=== PATIENT | female | born 1995 | race Two or more races ===

== ENCOUNTER → 2022-10-02 13:15 | Outpatient (BNVA) | payer OTHER, SELFPAY | PROVIDERS: PCP Internal Medicine; Visit Provider Physician Assistant Surgical ==

== ENCOUNTER 2022-10-17 02:50 | Emergency (ER) | payer OTHER, SELFPAY ==
--- NOTE | ~2022-10-17 | CT_ITS ---
EXAMINATION: CT HEAD WITHOUT CONTRAST CLINICAL INFORMATION: Head injury COMPARISON: None. TECHNIQUE: Contiguous axial imaging was performed from the skull base to vertex without intravenous contrast. This CT examination was performed using dose optimization techniques as appropriate, variously including the following: * Automated exposure control * Adjustment of mA and/or kV according to patient size (this includes techniques or standardized protocols for targeted exams where dose is matched to indication/reason for exam; i.e. extremities or head) Use of iterative reconstruction technique DLP: 805 mGy-cm. FINDINGS: There is no evidence of acute intracranial hemorrhage or territorial infarction. No abnormal mass effect or midline shift is seen. [place] to white matter differentiation is well preserved. No extra-axial fluid collections are identified. No hydrocephalus. No significant volume loss. There is no abnormal attenuation within the brain parenchyma. The osseous structures and soft tissues are normal. The mastoid air cells are well aerated. Diffuse opacification throughout the paranasal sinuses. CT/CT head/brain wo IV con IMPRESSION: No acute intracranial pathology. Diffuse paranasal sinus opacification.
[2022-10-17 02:53] VITALS: BP 157/84; PULSE 74; RESP 18; TEMP 37; O2SAT 96; BMI 28.0
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
--- NOTE | 2022-10-17 03:30 | MHC.EDTECH ---
Blood work not to be done at this time per CANYD Garza and Dr Sanders.
--- NOTE | 2022-10-17 03:34 | MHC.EDTECH ---
Labs have been cancelled at this time. pt awaiting CT sacn.
[2022-10-17 03:40] LABS: UPreg QC Valid YES; Urine Pregnancy NEGATIVE (NEGATIVE)
[2022-10-17 04:56] VITALS: BP 105/53; PULSE 75; RESP 18; TEMP 36.4; O2SAT 98
--- NOTE | 2022-10-17 04:58 | PC.NURSE ---
pt ambulatory at discharge. skin pwd. pt provided with discharge packet. pt verbalized understanding of discharge plan
== END 2022-10-17 05:00 | disposition home or self-care (01) ==
PROVIDERS: Emergency Provider Emergency Medicine Emergency Medical Services
DX: S09.90XA Unspecified injury of head, initial encounter (principal); R11.2 Nausea with vomiting, unspecified; R51.9 Headache, unspecified; W01.0XXA Fall on same level from slipping, tripping and stumbling without subsequent striking against object, initial encounter; Y93.9 Activity, unspecified; Y92.9 Unspecified place or not applicable; Y99.9 Unspecified external cause status; Z79.899 Other long term (current) drug therapy
CPT/HCPCS: 70450; 81025; 99284

== ENCOUNTER → 2022-10-19 08:00 | Outpatient (BNVA) | payer OTHER, SELFPAY | PROVIDERS: PCP Internal Medicine; Visit Provider Surgery ==

== ENCOUNTER 2022-11-17 03:55 | Emergency (ER) | payer OTHER, SELFPAY ==
[2022-11-17 03:59] VITALS: BP 119/92; PULSE 112; RESP 20; TEMP 36.4; O2SAT 96; BMI 32.9
[2022-11-17 04:15] LABS: Basophils Absolute Auto 0.1 X10*3/uL (0.0-0.2); Basophils Percent Auto 0.4 % (0-2); Eosinophils Absolute Auto 0.5 X10*3/uL (0.0-0.4); Eosinophils Percent Auto 3.9 % (0-4); Hematocrit 40.5 % (37.0-47.0); Hemoglobin 12.3 g/dl (12.0-16.0); Imm Gran Abs Auto 0.05 X10*3/uL (0.00-0.03); Imm Gran Pct Auto 0.4 % (0.0-0.4); Lymphocytes Absolute Auto 5.3 X10*3/uL (1.2-4.9); Lymphocytes Percent Auto 40.6 % (20-40); MANUAL DIFF FLAG SCAN; Mean Corpuscular HGB Conc 30.4 g/dl (31.0-35.0); Mean Corpuscular Hemoglobin 22.8 pg (27.0-33.0); Mean Corpuscular Volume 75.1 fL (80.0-98.0); Mean Platelet Volume 10.5 fL (9.4-12.3); Monocytes Absolute Auto 0.7 X10*3/uL (0.1-1.2); Monocytes Percent Auto 5.3 % (2-11); Neutrophils Absolute Auto 6.4 x10*3/uL (2.0-8.3); Neutrophils Percent Auto 49.4 % (45-73); Platelet Count 357 X10*3/uL (160-400); Red Blood Count 5.39 X10*6/uL (4.20-5.50); Red Cell Distribution Width 14.6 % (11.0-16.0); SCAN SMEAR FLAG 1
[2022-11-17] MEDS: ondansetron HCL 4 MG/2 ML VIAL IVPUSH (04:16)
--- NOTE | 2022-11-17 04:19 | PC.NURSE ---
IV established, labs obtained. Pt medicated per AUG.
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
[2022-11-17 04:25] LABS: SLIDE REVIEW VERIFIED
[2022-11-17 04:34] LABS: Alanine Aminotransferase 16 U/L (0-31); Albumin Level 4.4 g/dL (3.5-5.0); Alkaline Phosphatase 73 U/L (39-117); Anion Gap 15 (12-20); Aspartate Amino Transferase 13 U/L (5-31); Bilirubin Direct < 0.2 mg/dL (0.0-0.5); Bilirubin Total 0.2 mg/dL (0.0-1.0); Blood Urea Nitrogen 11 mg/dL (9-16); Calcium 9.6 mg/dL (8.4-10.2); Carbon Dioxide 24 mmol/L (22-29); Chloride 109 mmol/L (96-108); Creatinine Clr Calc Pharmacy 104.1; Estimated Glomerular Filt Rate > 60; Ethanol 140 mg/dL; Glucose Random 108 mg/dL (60-115); Lipase 25 U/L (8-78); Potassium 4.2 mmol/L (3.3-5.1); Sodium 144 mmol/L (135-145); Total Protein 7.7 g/dL (6.5-8.0)
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
[2022-11-17] MEDS: Magnesium Hydrox/Alum Hydrox 30 ML ORAL.SUSP PO (04:49)
[2022-11-17] MEDS: Lidocaine HCl Viscous 2 % 15 ML SOLUTION 10 ML MUCOUS MEM (04:49)
[2022-11-17] MEDS: 0.9 % Sodium Chloride 1,000 ML 999 ML IV (04:50)
[2022-11-17 06:48] VITALS: BP 134/74; PULSE 91; RESP 16; TEMP 36.6; O2SAT 95
== END 2022-11-17 07:22 | disposition home or self-care (01) ==
PROVIDERS: Emergency Provider Student in an Organized Health Care Education/Training Program
DX: F10.220 Alcohol dependence with intoxication, uncomplicated (principal); Y90.6 Blood alcohol level of 120-199 mg/100 ml; K29.20 Alcoholic gastritis without bleeding; Z79.899 Other long term (current) drug therapy
CPT/HCPCS: 36415; 80048; 80076; 80307; 83690; 85025; 96361; 96374; 99284; J2405

== ENCOUNTER 2022-12-23 23:48 | Emergency (ER) | payer OTHER, SELFPAY ==
[2022-12-23 23:49] VITALS: BP 154/89; PULSE 105; RESP 18; TEMP 36.1; O2SAT 97; BMI 37.2
[2022-12-24 00:27] LABS: MANUAL DIFF FLAG NO
[2022-12-24 00:31] LABS: Basophils Percent Auto 0.3 % (0-2); Eosinophils Absolute Auto 0.4 X10*3/uL (0.0-0.4); Eosinophils Percent Auto 3.2 % (0-4); Hemoglobin 11.8 g/dl (12.0-16.0); Imm Gran Abs Auto 0.05 X10*3/uL (0.00-0.03); Imm Gran Pct Auto 0.4 % (0.0-0.4); Lymphocytes Absolute Auto 3.2 X10*3/uL (1.2-4.9); Mean Corpuscular HGB Conc 31.1 g/dl (31.0-35.0); Mean Corpuscular Volume 74.2 fL (80.0-98.0); Mean Platelet Volume 11.2 fL (9.4-12.3); Monocytes Percent Auto 7.9 % (2-11); Neutrophils Absolute Auto 7.3 x10*3/uL (2.0-8.3); Neutrophils Percent Auto 61.2 % (45-73); Platelet Count 311 X10*3/uL (160-400); Red Blood Count 5.12 X10*6/uL (4.20-5.50); Red Cell Distribution Width 15.7 % (11.0-16.0)
[2022-12-24 00:47] LABS: Alanine Aminotransferase 15 U/L (0-31); Albumin Level 3.9 g/dL (3.5-5.0); Alkaline Phosphatase 66 U/L (39-117); Anion Gap 14 (12-20); Aspartate Amino Transferase 14 U/L (5-31); Bilirubin Direct 0.1 mg/dL (0.0-0.5); Bilirubin Total 0.4 mg/dL (0.0-1.0); Blood Urea Nitrogen 11 mg/dL (9-16); Calcium 9.2 mg/dL (8.4-10.2); Carbon Dioxide 22 mmol/L (22-29); Chloride 110 mmol/L (96-108); Creatinine Clr Calc Pharmacy 131.8; Estimated Glomerular Filt Rate > 60; Glucose Random 109 mg/dL (60-115); Lipase 23 U/L (8-78); Sodium 142 mmol/L (135-145); Total Protein 7.3 g/dL (6.5-8.0)
[2022-12-24 02:00] VITALS: BP 150/82; PULSE 97; RESP 8; O2SAT 97
[2022-12-24 02:27] VITALS: BP 107/56; PULSE 84; RESP 18; TEMP 37; O2SAT 95
--- NOTE | 2022-12-24 02:33 | MHC.EDTECH ---
PATIENT VITALS SIGN TAKEN ,URINE SAMPLE COLLECTED AND SENT TO LAB ,WARM BLANKET GIVEN ,PT RESTING QUIETLY IN BED .
[2022-12-24 02:42] LABS: Appearance Urine Clear; Color Urine Yellow; Glucose Urine UA Negative (Negative); Leukocyte Esterase Urine Moderate (2+) (Negative); Nitrite Urine Negative (Negative); PH 6.5 (5.0-9.0); Specific Gravity - Urine 1.025 (1.005-1.025); UMIC TRIGGER UACC YES; Urine Blood Negative (Negative); Urine Ketones Negative (Negative); Urine Protein Negative (Neg-Trace)
[2022-12-24 02:45] LABS: UPreg QC Valid YES; Urine Pregnancy NEGATIVE (NEGATIVE)
[2022-12-24 02:47] LABS: Bacteria Urine 2+ (None Seen); Hyaline Casts Urine 0-2 /LPF (0-2); UACC Culture Trigger YES
[2022-12-24 03:55] LABS: COVID-19 Test Negative (Negative); IDNOW Serial# 6674DD1D
--- NOTE | 2022-12-24 03:55 | ED.GENADULT ---
HPI - General Adult General Chief complaint: General Medical Stated complaint: uro gen female? general med Time Seen by Provider: 12/24/22 03:08 Source: patient Mode of arrival: ambulatory Limitations: no limitations History of Present Illness HPI narrative: 27-year-old female came in for cough, congestion, and shortness of breath for at least a week, no recent travel, no exposure to a sick contact, patient is known to have genital herpes been having vaginal pain concern of genital herpes flareup, sexually active with 1 partner complaining of frequent urination. Related Data Home Medications Medication Instructions Recorded Confirmed albuterol sulfate 2.5 mg/3 mL mg inhalation Q6H PRN wheezing 03/29/22 10/19/22 (0.083 %) solution for nebulization budesonide-formoterol HFA 80 2 puff inhalation BID 10/02/22 10/19/22 mcg-4.5 mcg/actuation aerosol inhaler (Symbicort) Previous Rx's Medication Instructions Recorded omeprazole 40 mg capsule,delayed 40 mg PO DAILY #14 caps 11/17/22 release albuterol sulfate 90 mcg/actuation 1 inh inhalation QID PRN shortness 12/24/22 aerosol inhaler of breath or wheezing #8.5 grams levofloxacin 750 mg tablet 750 mg PO DAILY #7 tabs 12/24/22 prednisone 20 mg tablet 20 mg PO BID #10 tabs 12/24/22 valacyclovir 1 gram tablet 1,000 mg PO DAILY #5 tabs 12/24/22 (Valtrex) Allergies Allergy/AdvReac Type Severity Reaction Status Date / Time No Known Allergies Allergy Verified 11/17/22 03:59 Review of Systems Review of Systems: All other systems are reviewed and are negative Constitutional: Reports as per HPI and Reports no additional constitutional complaints Eyes: Reports as per HPI and Reports no additional eye complaints Reports system reviewed and no additional complaints, except as documented Cardiovascular: Reports as per HPI and Reports no additional cardiovascular complaints Respiratory: Reports as per HPI and Reports no additional respiratory complaints Gastrointestinal: Reports as per HPI and Reports no additional gastrointestinal complaints Genitourinary: Reports no additional female genitourinary complaints Musculoskeletal: Reports no additional musculoskeletal complaints Skin/Breast: Reports system reviewed and no additional complaints, except as docu Psychiatric: Reports no additional psychiatric complaints Endocrine: Reports no additional endocrine complaints Hematologic/Lymphatic: Reports no additional hematologic/lymphatic complaints Allergic/Immunologic: Reports no additional allergic/immunologic complaints Reports system reviewed and no additional complaints, except as documented and Reports Abnormal speech present [facility] Past Medical History Medical History Asthma Morbid obesity Surgical History History of nasal surgery Family History Family History Mother Hypertension Diabetes Father Hypertension Diabetes Son No problems noted. Social History Social History Alcohol intake: never Patient Tobacco Use Status: Never used Tobacco Smoked in Last 30 Days: No Use of substances other than those prescribed or required for medical reasons: No Advance Directives: No Advance Directives Information Provided: No Patient : No Physical Exam ED Vital Signs: Vital Signs - 24 hr 12/23/22 23:49 12/24/22 02:00 12/24/22 02:27 Temperature 97 F 98.6 F Pulse Rate 105 H 97 84 Respiratory Rate 18 8 L 18 Blood Pressure 154/89 H 150/82 H 107/56 L Pulse Oximetry 97 97 95 Oxygen Delivery Method Room Air Room Air 12/24/22 04:11 Temperature Pulse Rate 94 Respiratory Rate 18 Blood Pressure Pulse Oximetry Oxygen Delivery Method BMI result Body Mass Index 37.2 Vital signs have been reviewed as appeared to be correct. Blood pressure normal. Heart rate normal. Respiration rate normal. Temperature normal. Oxygen saturation normal. Appearance: Alert. Oriented X3. No acute distress. Head: Normal external exam. Normocephalic. Atraumatic. No Pacheco signs noted. No raccoon eyes noted Eyes: PERRLA. EOMI. Conjunctiva and sclera normal. Eyelids normal. ENT: TM's Normal. Pharynx normal. Uvula midline. Moist mucous membranes. No trismus noted. No drooling noted. No muffled voice noted. Neck: Normal inspection. Neck supple. FROM. No adenopathy. Thyroid Normal. No meningeal signs. No neck mass noted. CVS: Normal heart rate and rhythm. Heart sound normal. No murmurs noted. Pulses normal throughout. Respiratory: No respiratory distress. Painless inspiration. Breath sounds normal. Diffuse expiratory wheezing with prolonged expiration.. Chest nontender. No accessory muscle usage noted or decreased air movement noted. Abdomen: Soft and nontender. Bowel sounds normal in all 4 quadrants. No distention noted. No organomegaly noted. No visible injury noted. Pelvic exam: Few vesicular lesion on left labial majora that is tender to touch otherwise unremarkable exam (exam was preformed in the presence of female gse mechanic dietetic technician registered) Back: No CVA tenderness. Full range of motion noted. Skin: Skin warm and dry. Normal skin color. Normal skin turgor. No rashes/lesions/lacerations noted. Extremities: No lower extremity edema. Extremities exhibit normal range of motion. Extremities nontender. Neuro: Oriented X 3. Cranial nerve exam: II-XII are grossly intact No motor deficit. No sensory deficit. Reflexes normal. Course Course Course Narrative: 27-year-old female came in with upper respiratory symptoms, and vaginal pain. Acute bronchitis/asthma exacerbation start the patient on prednisone and bronchodilator. Patient with genital herpes will start the patient on Valtrex. UTI start the patient on levofloxacin. Medications Administered Discontinued Medications Generic Name Dose Route Start Last Admin Trade Name Freq PRN Reason Stop Dose Admin Albuterol Sulfate 5 mg 12/24/22 03:58 12/24/22 04:08 Albuterol Sulfate (0.083%) 2.5 Mg/3 Ml Vial.Neb INHALE 12/24/22 03:59 5 mg ONCE ONE Administration Albuterol/Ipratropium 3 ml 12/24/22 03:58 12/24/22 04:08 Albuterol/Iprat 2.5/0.5mg 3 Ml Ampul.Neb INHALE 12/24/22 03:59 3 ml ONCE ONE Administration Prednisone 60 mg 12/24/22 04:06 12/24/22 04:19 Prednisone 20 Mg Tablet PO 12/24/22 04:07 60 mg ONCE ONE Administration Medical Decision Making Differential Diagnosis Differential Diagnoses: The differential diagnosis associated with the presentation includes (Upper respiratory viral infection, bronchitis, asthma exacerbation, UTI, STDs, herpes genital flare.) Admission/Observation Consideration of admission/observation: Escalation of care including admission/observation considered Lab Data MDM Lab Attestation statement: I reviewed the patient's lab results. 12/24/22 00:14 12/24/22 00:14 Labs: Lab Results 07/09/1312/24/22 12/24/22 Range/Units 00:14 00:14 02:31 WBC 12.0 H (4.8-10.8) X10*3/uL RBC 5.12 (4.20-5.50) X10*6/uL Hgb 11.8 L (12.0-16.0) g/dl Hct 38.0 (37.0-47.0) % MCV 74.2 L (80.0-98.0) fL MCH 23.0 L (27.0-33.0) pg MCHC 31.1 (31.0-35.0) g/dl RDW 15.7 (11.0-16.0) % Plt Count 311 (160-400) X10*3/uL MPV 11.2 (9.4-12.3) fL Immature Gran % (Auto) 0.4 (0.0-0.4) % Neut % (Auto) 61.2 (45-73) % Lymph % (Auto) 27.0 (20-40) % [place] % (Auto) 7.9 (2-11) % Eos % (Auto) 3.2 (0-4) % Baso % (Auto) 0.3 (0-2) % Lymph # (Auto) 3.2 (1.2-4.9) X10*3/uL [place] # (Auto) 1.0 (0.1-1.2) X10*3/uL Eos # (Auto) 0.4 (0.0-0.4) X10*3/uL Baso # (Auto) 0.0 (0.0-0.2) X10*3/uL Abs Immat Gran (auto) 0.05 H (0.00-0.03) X10*3/uL Absolute Neuts (auto) 7.3 (2.0-8.3) x10*3/uL Absolute Nucleated RBC 0.000 (0.0-0.012) X10*3/uL Nucleated RBC % (auto) 0.0 (0.0-0.2) /100WBC Sodium 142 (135-145) mmol/L Potassium 4.0 (3.3-5.1) mmol/L Chloride 110 H (96-108) mmol/L Carbon Dioxide 22 (22-29) mmol/L Anion Gap 14 (12-20) BUN 11 (9-16) mg/dL Creatinine 0.71 (0.5-1.4) mg/dL Estim Creat Clear Calc 131.8 Estimated GFR > 60 Random Glucose 109 (60-115) mg/dL Calcium 9.2 (8.4-10.2) mg/dL Total Bilirubin 0.4 (0.0-1.0) mg/dL Direct Bilirubin 0.1 (0.0-0.5) mg/dL AST 14 (5-31) U/L ALT 15 (0-31) U/L Alkaline Phosphatase 66 (39-117) U/L Total Protein 7.3 (6.5-8.0) g/dL Albumin 3.9 (3.5-5.0) g/dL Lipase 23 (8-78) U/L Urine Color Yellow Urine Appearance Clear Urine pH 6.5 (5.0-9.0) Ur Specific [place] 1.025 (1.005-1.025) Urine Protein Negative (Neg-Trace) mg/dL Urine Glucose (UA) Negative (Negative) mg/dL Urine Ketones Negative (Negative) mg/dL Urine Blood Negative (Negative) Urine Nitrite Negative (Negative) Ur Leukocyte Esterase Moderate (2+) H (Negative) Urine RBC 3-5 H (0-2) /HPF Urine WBC 11-20 H (0-5) /HPF Ur Squamous Epith Cells 11-20 (0-2) /HPF Urine Bacteria 2+ (None Seen) Hyaline Casts 0-2 (0-2) /LPF Urine Test (NEGATIVE) COVID-19 ([place]) (Negative) COVID-19 Clin Com 12/24/22 12/24/22 Range/Units 02:31 03:33 WBC (4.8-10.8) X10*3/uL RBC (4.20-5.50) X10*6/uL Hgb (12.0-16.0) g/dl Hct (37.0-47.0) % MCV (80.0-98.0) fL MCH (27.0-33.0) pg MCHC (31.0-35.0) g/dl RDW (11.0-16.0) % Plt Count (160-400) X10*3/uL MPV (9.4-12.3) fL Immature Gran % (Auto) (0.0-0.4) % Neut % (Auto) (45-73) % Lymph % (Auto) (20-40) % [place] % (Auto) (2-11) % Eos % (Auto) (0-4) % Baso % (Auto) (0-2) % Lymph # (Auto) (1.2-4.9) X10*3/uL [place] # (Auto) (0.1-1.2) X10*3/uL Eos # (Auto) (0.0-0.4) X10*3/uL Baso # (Auto) (0.0-0.2) X10*3/uL Abs Immat Gran (auto) (0.00-0.03) X10*3/uL Absolute Neuts (auto) (2.0-8.3) x10*3/uL Absolute Nucleated RBC (0.0-0.012) X10*3/uL Nucleated RBC % (auto) (0.0-0.2) /100WBC Sodium (135-145) mmol/L Potassium (3.3-5.1) mmol/L Chloride (96-108) mmol/L Carbon Dioxide (22-29) mmol/L Anion Gap (12-20) BUN (9-16) mg/dL Creatinine (0.5-1.4) mg/dL Estim Creat Clear Calc Estimated GFR Random Glucose (60-115) mg/dL Calcium (8.4-10.2) mg/dL Total Bilirubin (0.0-1.0) mg/dL Direct Bilirubin (0.0-0.5) mg/dL AST (5-31) U/L ALT (0-31) U/L Alkaline Phosphatase (39-117) U/L Total Protein (6.5-8.0) g/dL Albumin (3.5-5.0) g/dL Lipase (8-78) U/L Urine Color Urine Appearance Urine pH (5.0-9.0) Ur Specific [place] (1.005-1.025) Urine Protein (Neg-Trace) mg/dL Urine Glucose (UA) (Negative) mg/dL Urine Ketones (Negative) mg/dL Urine Blood (Negative) Urine Nitrite (Negative) Ur Leukocyte Esterase (Negative) Urine RBC (0-2) /HPF Urine WBC (0-5) /HPF Ur Squamous Epith Cells (0-2) /HPF Urine Bacteria (None Seen) Hyaline Casts (0-2) /LPF Urine Test NEGATIVE (NEGATIVE) COVID-19 ([place]) Negative (Negative) COVID-19 Clin Com See Note Independent Interpretation I performed an independent interpretation of an: Plain X-Ray (Chest: No acute intrathoracic pathology.) Radiology Impression Discussion of test interpretation with radiology: I have reviewed the radiologist's reading. Discharge Plan Discharge Clinical Impression: UTI (urinary tract infection), Genital herpes, Bronchitis Patient Disposition: Home, Self-Care Instructions: Sexually Transmitted Diseases (ED), Urinary Tract Infection in Women (DC), Acute Bronchitis (ED) Prescriptions: New valacyclovir [Valtrex] 1 gram tablet 1,000 mg PO DAILY Qty: 5 0RF levofloxacin 750 mg tablet 750 mg PO DAILY Qty: 7 0RF prednisone 20 mg tablet 20 mg PO BID Qty: 10 0RF albuterol sulfate 90 mcg/actuation HFA aerosol inhaler 1 inh inhalation QID PRN (Reason: shortness of breath or wheezing) Qty: 8.5 0RF No Action omeprazole 40 mg capsule,delayed release(DR/EC) 40 mg PO DAILY Qty: 14 0RF albuterol sulfate 2.5 mg /3 mL (0.083 %) solution for nebulization inhalation Q6H PRN (Reason: wheezing) budesonide-formoterol [Symbicort] 80-4.5 mcg/actuation HFA aerosol inhaler 2 puff inhalation BID
[2022-12-24] MEDS: Albuterol Sulfate (0.083%) 2.5 MG/3 ML VIAL.NEB 5 MG INHALE (04:08)
[2022-12-24] MEDS: Albuterol/Iprat 2.5/0.5MG 3 ML AMPUL.NEB INHALE (04:08)
[2022-12-24 04:11] VITALS: PULSE 94; RESP 18; O2SAT 95
--- NOTE | 2022-12-24 04:23 | PC.NURSE ---
pt endorsing some respiratory difficulty, despite O2 saturation > 97%. Medication ordered and administered by respiratory and this RN with good effect.
[2022-12-24 06:17] VITALS: BP 124/65; PULSE 100; RESP 16; TEMP 37; O2SAT 95
[2022-12-24 07:53] LABS: CT PCR NOT DETECTED (Not Detect.); NG PCR NOT DETECTED (Not Detect.)
== END 2022-12-24 06:22 | disposition home or self-care (01) ==
PROVIDERS: Emergency Provider Emergency Medicine
DX: N39.0 Urinary tract infection, site not specified (principal); A60.00 Herpesviral infection of urogenital system, unspecified; J40 Bronchitis, not specified as acute or chronic; Z20.822 Contact with and (suspected) exposure to COVID-19; R06.02 Shortness of breath; E66.9 Obesity, unspecified; Z68.37 Body mass index [BMI] 37.0-37.9, adult
CPT/HCPCS: 0353U; 36415; 71046; 80048; 80076; 81001; 81025; 83690; 85025; 87086; 87635; 94640; 99284

== ENCOUNTER 2022-12-31 13:06 | Emergency (ER) | payer OTHER, SELFPAY ==
--- NOTE | ~2022-12-31 | US_ITS ---
EXAMINATION: US BREAST DIAGNOSTIC, LIMITED, RIGHT US ULTRASOUND-GUIDED RIGHT BREAST ABSCESS ASPIRATION CLINICAL INFORMATION: Right breast abscess medial to the right breast areola. COMPARISON: None available. TECHNIQUE: Ultrasound of the breast is performed with real-time arthur scale imaging and color Doppler. Following explaining ultrasound-guided right breast abscess aspiration procedure, benefits and risks, a written consent was obtained. Patient was placed supine and the area around the right breast areola and medial aspect where patient has tenderness and redness was cleaned in an aseptic manner. Sterile drape was applied. 1% lidocaine was injected at the skin. Initially, a 20-gauge needle connected to syringe was inserted under sterile ultrasound guidance into the right breast abscess and 0.5 mL of pus was removed. Still, bladder pus remained. Subsequently, an 18-gauge needle attached to syringe was advanced and an additional 0.5 mL of pus was obtained. There was still a significant amount of pus remaining. Postprocedure, the needle was withdrawn and complete hemostasis achieved at puncture site. Patient tolerated the procedure extremely well. FINDINGS: On ultrasound imaging, there is a well-defined complex fluid collection/abscess medial to the right breast areola with significant internal thick debris. It measures 4.2 x 1.3 x 3.3 cm and is approximately 0.4 cm deep to the skin surface. There is peripheral increased vascularity. The results were discussed with the referring physician. Patient wants it drained immediately. Approximately 1 mL or less of pus was drained from the right breast abscess. However, a significant amount of abscess remains and could not be drained due to its thickness. Results were conveyed to the referring PA in the ER department. US/US drain soft tissue w imaging IMPRESSION: Moderate-sized abscess right medial breast, as described above. Approximately less than 1 mL of thick abscess was drained under sterile ultrasound guidance. There is a significant amount of debris within the abscess remaining. This may need a surgical evaluation. The pus collected from the procedure was sent to lab for culture and sensitivity by the referring physician.
[2022-12-31 13:13] VITALS: BP 116/70; PULSE 85; RESP 19; TEMP 36.6; O2SAT 98; BMI 38.3
--- NOTE | 2022-12-31 13:14 | ED_ITS ---
HPI - General Adult General Chief complaint: Wound/Laceration Stated complaint: Lump on breast (red) Time Seen by Provider: 12/31/22 13:35 Source: patient Mode of arrival: ambulatory Limitations: no limitations History of Present Illness HPI narrative: Patient is a 27 year old assigned female at with a history of asthma presenting to the emergency department today with redness and swelling to her right breast. Patient states that this has been getting worse and worse over the last few days. Patient states that is started as a small spot around a nipple piercing and has grown from there. Patient denies any dizziness, lightheadedness, abdominal pain, nausea, vomiting, fever, chills, blurry vision, double vision, loss of vision, chest pain, difficulty breathing, shortness of breath, back pain, night sweats, pain with urination, increased urinary frequency, increased urinary urgency, blood in her urine or stool, syncope or a near syncopal episode, recent trauma or falls, bowel incontinence, bladder in continence, bowel retention, bladder retention, or any other complaints at this time. Onset (ago): day(s) Location: right (breast) Radiation: non-radiation Severity: mild Severity scale (1-10): 4 Relieving factors: none Exacerbating factors: none Associated symptoms: denies other symptoms Treatments prior to arrival: none Related Data Home Medications Medication Instructions Recorded Confirmed albuterol sulfate 2.5 mg/3 mL mg inhalation Q6H PRN wheezing 03/29/22 10/19/22 (0.083 %) solution for nebulization budesonide-formoterol HFA 80 2 puff inhalation BID 10/02/22 10/19/22 mcg-4.5 mcg/actuation aerosol inhaler (Symbicort) Previous Rx's Medication Instructions Recorded omeprazole 40 mg capsule,delayed 40 mg PO DAILY #14 caps 11/17/22 release albuterol sulfate 90 mcg/actuation 1 inh inhalation QID PRN shortness 12/24/22 aerosol inhaler of breath or wheezing #8.5 grams levofloxacin 750 mg tablet 750 mg PO DAILY #7 tabs 12/24/22 prednisone 20 mg tablet 20 mg PO BID #10 tabs 12/24/22 valacyclovir 1 gram tablet 1,000 mg PO DAILY #5 tabs 12/24/22 (Valtrex) cephalexin 500 mg capsule 500 mg PO Q6H 7 days #28 caps 12/31/22 Allergies Allergy/AdvReac Type Severity Reaction Status Date / Time No Known Allergies Allergy Verified 12/31/22 13:13 Review of Systems Constitutional: Constitutional: Reports no additional constitutional complaints, Denies chills, Denies fever(s) and Denies night sweats Eyes: Eyes: Reports no additional eye complaints, Denies blurry vision, Denies change in vision, Denies diplopia, Denies eye discharge, Denies loss of vision and Denies eye pain ENT: Denies dizziness Cardiovascular: Cardiovascular: Reports no additional cardiovascular c omplaints, Denies chest pain, Denies lightheadedness, Denies Loss of Consciousness and Denies dyspnea Respiratory: Respiratory: Reports no additional respiratory complaints and Denies dyspnea Gastrointestinal: Gastrointestinal: Reports no additional gastrointestinal complaints, Denies abdominal pain, Denies melena, Denies hematochezia, Denies change in bowel habits and Denies change in stool character Genitourinary: Genitourinary: Denies hematuria, Denies urinary frequency, Denies dysuria, Denies urinary incontinence, Denies urinary hesitancy and Denies urinary urgency Musculoskeletal: Musculoskeletal: Reports no additional musculoskeletal complaints, Denies numbness and Denies tingling Integumentary/Breasts: Comments: right breast redness and swelling Neurologic: Denies dizziness, Denies loss of vision, Denies numbness and Denies tingling Psychiatric: Psychiatric: Reports no additional psychiatric complaints Endocrine: Endocrine: Reports no additional endocrine complaints Hematologic/Lymphatic: Hematologic/Lymphatic: Reports no additional hematologic/lymphatic complaints Allergic/Immunologic: Allergic/Immunologic: Reports no additional gracia rgic/immunologic complaints [facility] Past Medical History Attestation statement: The following information was validated with the patient. Source: old records reviewed and nursing notes reviewed Medical History Asthma Morbid obesity Surgical History History of nasal surgery Family History Family History Mother Hypertension Diabetes Father Hypertension Diabetes Son No problems noted. Social History Social History Alcohol intake: never Patient Tobacco Use Status: Never used Tobacco Advance Directives: No Advance Directives Information Provided: No Physical Exam ED Vital Signs: Vital Signs - 24 hr 12/31/22 13:13 Temperature 98 F Pulse Rate 85 Respiratory Rate 19 Blood Pressure 116/70 Pulse Oximetry 98 BMI result Body Mass Index 38.3 Const General: cooperative, no acute distress, alert and awake Nutritional Appearance: well nourished Orientation/consciousness: patient oriented x3 Limitations: no limitations HENMT Head: Yes normal to inspection and Yes atraumatic Ears: hearing grossly normal bilaterally and external ears normal General nose exam: Normal external nose present, no nasal discharge noted and no epistaxis Face and sinus: Yes normal facial exam, No abrasion and No laceration Mouth: Normal oral and palatal mucosa present, no drooling and no muffled voice Eyes General: appearance normal, both eyes and all related structures Periorbital: periorbital findings normal Eyelids: Yes eyelids normal Conjunctivae: conjunctivae normal Pupils: Equal, round and reactive pupils present EOM: EOMs intact bilaterally Neck Neck: Yes normal visual inspection, Yes full ROM and Yes no lymphadenopathy Chest Chest/axillae images: 1. Erythema, swelling, warmth, fluctuance Resp Effort & Inspection: normal respiratory effort and able to speak in complete sentences GI Inspection: Yes normal to inspection Neuro General: patient oriented x3 and moves all extremities Cranial nerves: Yes Equal, round and reactive pupils present Cognition (Neuro): normal cognition Motor exam (neuro): 5/5 motor strength present throughout Sensory Exam: Normal double simultaneous stimulation for sensation Coordination: [id number] test normal Extrem General: Yes normal to inspection, Yes full ROM and Yes capillary refill normal Psych Appearance: grossly normal Mental Status: mental status grossly normal Affect: normal affect Attitude: cooperative Thought process: Normal thought process present Thought content: Normal thought content present Insight: Good insight present (Psych) Course Course Course Narrative: This is an RME: Additional HPI, ROS, PE not included below will be deferred to primary provider. 27 year old female presents w/ right breast pain x few days worsening. Reports 10/10 constant pain worse w/ palpation. stared as a small marble surrounding her nipple piercing. Now nipple piercing is out. Reports she is not breast feeding. Denies numbness, tingling, fevers, chills PE w/ errythema, warmth and induration around 3 oclock position. Plan- labs, cultures, lactic Medications Administered Discontinued Medications Generic Name Dose Route Start Last Admin Trade Name Leah PRN Reason Stop Dose Admin Lidocaine HCl 5 ml 12/31/22 15:29 12/31/22 15:30 Lidocaine Hcl 1 % Mpf 5 Ml Vial SUBCUT 12/31/22 15:30 5 ml ONCE ONE Administration Oxycodone HCl 10 mg 12/31/22 15:17 12/31/22 15:27 Oxycodone Hcl Immed Release 5 Mg Tablet PO 12/31/22 15:18 10 mg ONCE ONE Administration Medical Decision Making Medical Decision Making [facility] Narrative: Patient is a 27 year old assigned female at with a history of asthma presenting to the emergency department today with right breast swelling, warmth, and redness. Patient's physical exam was as noted in the physical exam portion of this chart. Patient's right breast had an obvious abscess. Patient's blood work showed an elevated WBC count of 12.9 but was otherwise unremarkable. Paramjit flores's breast US showed an obvious abscess. I spoke with the IR department who came down and attempted to drain with ultrasound guidance at the bed side however, they were unsuccessful. I spoke with the general surgeon who came down and incised and drained the right breast abscess, without incident. The general surgeon recommended the patient follow up in the office in 7 days and be started on oral antibiotics. General surgeon stated that he sent a culture of the wound. I explained my physical exam findings as well as all test results to the patient. I answered all questions asked by the patient. I stressed the importance of the patient taking her medication as prescribed. I stressed the im portance of the patient following up with her primary care provider and a general surgeon. I stressed the importance of the patient returning to the emergency department immediately if her symptoms were to worsen or if she were to develop any dizziness, shortness of breath, difficulty breathing, chest pain, blurry vision, loss of vision, nausea, vomiting, abdominal pain, fever, chills, back pain, or any other complaints. Patient verbalized agreement and understanding with this treatment plan and discharge. Differential Diagnosis Differential Diagnoses: The differential diagnosis associated with the presentation includes Right breast abscess Breast infection Abscess Admission/Observation Consideration of admission/observation: Escalation of care including a dmission/observation considered Patient would have been admitted to the hospital had her work up had any findings where hospital admission was appropriate and her clinical presentation warranted hospital admission. Consult Healthcare Provider Management of the patient was discussed with: [employer] (consulted with IR and the general surgery team as noted in the MDM portion of this chart. ) Lab Data [facility] Lab Attestation statement: I reviewed the patient's lab results. Patient's WBC count is slightly elevated at 12.9, the rest of her labs are gorssly normal. 12/31/22 13:34 12/31/22 13:34 Labs: Lab Results 12/31/22 12/31/22 12/31/22 Range/Units 13:34 13:34 13:34 WBC 12.9 H (4.8-10.8) X10*3/uL RBC 5.26 (4.20-5.50) X10*6/uL Hgb 12.0 (12.0-16.0) g/dl Hct 38.8 (37.0-47.0) % MCV 73.8 L (80.0-98.0) fL MCH 22.8 L (27.0-33.0) pg MCHC 30.9 L (31.0-35.0) g/dl RDW 16.0 (11.0-16.0) % Plt Count 348 (160-400) X10*3/uL MPV 10.8 (9.4-12.3) fL Immature Gran % (Auto) 0.6 H (0.0-0.4) % Neut % (Auto) 65.3 (45-73) % Lymph % (Auto) 27.3 (20-40) % [place] % (Auto) 4.2 (2-11) % Eos % (Auto) 2.4 (0-4) % Baso % (Auto) 0.2 (0-2) % Lymph # (Auto) 3.5 (1.2-4.9) X10*3/uL [place] # (Auto) 0.5 (0.1-1.2) X10*3/uL Eos # (Auto) 0.3 (0.0-0.4) X10*3/uL Baso # (Auto) 0.0 (0.0-0.2) X10*3/uL Abs Immat Gran (auto) 0.08 H (0.00-0.03) X10*3/uL Absolute Neuts (auto) 8.4 H (2.0-8.3) x10*3/uL Absolute Nucleated RBC 0.000 (0.0-0.012) X10*3/uL Nucleated RBC % (auto) 0.0 (0.0-0.2) /100WBC Sodium 140 (135-145) mmol/L Potassium 3.9 (3.3-5.1) mmol/L Chloride 109 H (96-108) mmol/L Carbon Dioxide 20 L (22-29) mmol/L Anion Gap 15 (12-20) BUN 13 (9-16) mg/dL Creatinine 0.72 (0.5-1.4) mg/dL Estim Creat Clear Calc 132.0 Estimated GFR > 60 Random Glucose 117 H (60-115) mg/dL Lactic Acid 1.4 (0.5-2.0) mmol/L Calcium 9.4 (8.4-10.2) mg/dL Total Bilirubin 0.3 (0.0-1.0) mg/dL AST 10 (5-31) U/L ALT 14 (0-31) U/L Alkaline Phosphatase 61 (39-117) U/L Total Protein 6.9 (6.5-8.0) g/dL Albumin 3.7 (3.5-5.0) g/dL Independent Interpretation I performed an independent interpretation of an: Ultrasound Interpretation: Right breast abscess. Radiology Impression Discussion of test interpretation with radiology: I have reviewed the radi ologist's reading. Prescription Management I considered prescription management with: Antibiotic (patient prescribed an antibiotic.) Critical Care Time Critical Care Time Critical Care Time: Yes Total Critical Care Time: 30 Attestation: I spent 30 minutes of Critical Care Time with this patient. This does not includ e time spent on separately reported billable procedures. Discharge Plan Discharge Clinical Impression: Abscess of breast Patient Disposition: Home, Self-Care Instructions: Abscess (ED), Abscess Incision and Drainage (DC) Additional Instructions: Follow up with your primary care provider and in 1 week, follow up with the general surgeon. Perform daily dressing changes and wound checks. Do NOT soak the affected area. Return to the emergency department immediately if your symptoms worsen or if you develop any dizziness, shortness of breath, difficulty breathing, chest pain, blurry vision, loss of vision, nausea, vomiting, abdominal pain, fever, chills, back pain, or any other complaints. Prescriptions: New cephalexin 500 mg capsule 500 mg PO Q6H 7 Days Qty: 28 0RF No Action omeprazole 40 mg capsule,delayed release(DR/EC) 40 mg PO DAILY Qty: 14 0RF valacyclovir [Valtrex] 1 gram tablet 1,000 mg PO DAILY Qty: 5 0RF levofloxacin 750 mg tablet 750 mg PO DAILY Qty: 7 0RF prednisone 20 mg tablet 20 mg PO BID Qty: 10 0RF albuterol sulfate 90 mcg/actuation HFA aerosol inhaler 1 inh inhalation QID PRN (Reason: shortness of breath or wheezing) Qty: 8.5 0RF albuterol sulfate 2.5 mg /3 mL (0.083 %) solution for nebulization inhalation Q6H PRN (Reason: wheezing) budesonide-formoterol [Symbicort] 80-4.5 mcg/actuation HFA aerosol inhaler 2 puff inhalation BID Referrals: [facility] General Surgeons [Provider Group] (Call to establish and follow up with a general surgeon in 1 week.) Cass Truong [Primary Care Provider] - Stand Alone Forms: Work/School Release Interventions: ED Discharge Assessment Last Done: 12/31/22 16:11 Discharge Date/Time: 12/31/22 16:15 Print Language: Upper Sorbian
[2022-12-31 13:45] LABS: MANUAL DIFF FLAG NO
[2022-12-31 13:47] LABS: Basophils Percent Auto 0.2 % (0-2); Eosinophils Absolute Auto 0.3 X10*3/uL (0.0-0.4); Eosinophils Percent Auto 2.4 % (0-4); Hematocrit 38.8 % (37.0-47.0); Imm Gran Abs Auto 0.08 X10*3/uL (0.00-0.03); Imm Gran Pct Auto 0.6 % (0.0-0.4); Lymphocytes Absolute Auto 3.5 X10*3/uL (1.2-4.9); Lymphocytes Percent Auto 27.3 % (20-40); Mean Corpuscular HGB Conc 30.9 g/dl (31.0-35.0); Mean Corpuscular Hemoglobin 22.8 pg (27.0-33.0); Mean Corpuscular Volume 73.8 fL (80.0-98.0); Mean Platelet Volume 10.8 fL (9.4-12.3); Monocytes Absolute Auto 0.5 X10*3/uL (0.1-1.2); Monocytes Percent Auto 4.2 % (2-11); Neutrophils Absolute Auto 8.4 x10*3/uL (2.0-8.3); Neutrophils Percent Auto 65.3 % (45-73); Platelet Count 348 X10*3/uL (160-400); Red Blood Count 5.26 X10*6/uL (4.20-5.50); White Blood Count 12.9 X10*3/uL (4.8-10.8)
[2022-12-31 13:57] LABS: Alanine Aminotransferase 14 U/L (0-31); Albumin Level 3.7 g/dL (3.5-5.0); Alkaline Phosphatase 61 U/L (39-117); Anion Gap 15 (12-20); Aspartate Amino Transferase 10 U/L (5-31); Bilirubin Total 0.3 mg/dL (0.0-1.0); Blood Urea Nitrogen 13 mg/dL (9-16); Calcium 9.4 mg/dL (8.4-10.2); Carbon Dioxide 20 mmol/L (22-29); Chloride 109 mmol/L (96-108); Estimated Glomerular Filt Rate > 60; Glucose Random 117 mg/dL (60-115); Potassium 3.9 mmol/L (3.3-5.1); Sodium 140 mmol/L (135-145); Total Protein 6.9 g/dL (6.5-8.0)
--- NOTE | 2022-12-31 16:11 | PM.CNGS ---
History of Present Illness Consult details Consult date: 12/31/22 Requesting physician: Ynes Aleman Narrative: 27-year-old female patient presenting with a painful right breast. She reports previously undergoing a right nipple piercing. She was well until several days ago when she began to have a small area of redness at the 3 o'clock position just lateral to the nipple-areolar complex. This suddenly became very painful and more swollen today. She reports a history of asthma and recently was on a course of prednisone due to bronchitis. Shortly after this the area of redness began. She presented to the emergency department and was found to have an area that appeared fluctuant in the 3 o'clock position of the right breast. Ultrasound confirmed an abscess collection. An attempt needle aspiration was unsuccessful therefore surgical consultation was requested for incision and drainage. She denies a previous history of breast problems or breast surgery. Review of Systems Review of Systems: Yes all other systems are reviewed and are negative Genitourinary: Genitourinary: Denies nipple discharge Integumentary/Breasts: Skin/Breast: Reports breast swelling, Reports breast pain, Reports breast mass and Denies nipple discharge PMFSH Past Medical History Medical History Asthma Morbid obesity Family History Family History Mother Hypertension Diabetes Father Hypertension Diabetes Son No problems noted. Surgical History Surgical History History of nasal surgery Social History Social History Alcohol intake: never Patient Tobacco Use Status: Never used Tobacco Advance Directives: No Advance Directives Information Provided: No Meds Allergies Allergy/AdvReac Type Severity Reaction Status Date / Time No Known Allergies Allergy Verified 12/31/22 13:13 Home Medications Medication Instructions Recorded Confirmed Last Taken Type albuterol sulfate 2.5 mg/3 mL mg inhalation Q6H PRN wheezing 03/29/22 10/19/22 Unknown History (0.083 %) solution for nebulization budesonide-formoterol HFA 80 2 puff inhalation BID 10/02/22 10/19/22 Unknown History mcg-4.5 mcg/actuation aerosol inhaler (Symbicort) Physical Exam Vital Signs: Vital Signs: Last Vital Signs Temp 98 F 12/31/22 13:13 Pulse 85 12/31/22 13:13 Resp 19 12/31/22 13:13 BP 116/70 12/31/22 13:13 Pulse Ox 98 12/31/22 13:13 BMI result Body Mass Index 38.3 Const: General: well developed, in distress (Due to breast pain) and anxious Nutritional Appearance: well nourished Orientation/consciousness: patient oriented x3 HEENT: Head: Yes normocephalic and Yes atraumatic Ears: hearing grossly normal bilaterally Chest: Other: Area of redness and fluctuance noted in the right breast at the 3 o'clock position extending below the nipple-areolar complex. Area of swelling measures approximately 4 cm in diameter. Area is exquisitely tender to palpation. No other palpable masses appreciated although exam is difficult due to tenderness. Chest/axillae images: 1. Abscess right breast Skin: Other: Warm, dry, no rash Neuro: General: patient oriented x3 Extrem: General: Yes no clubbing, cyanosis or edema Results Labs 12/31/22 13:34 12/31/22 13:34 Labs: Abnormal lab results 12/31/22 12/31/22 Range/Units 13:34 13:34 WBC 12.9 H (4.8-10.8) X10*3/uL MCV 73.8 L (80.0-98.0) fL MCH 22.8 L (27.0-33.0) pg MCHC 30.9 L (31.0-35.0) g/dl Immature Gran % (Auto) 0.6 H (0.0-0.4) % Abs Immat Gran (auto) 0.08 H (0.00-0.03) X10*3/uL Absolute Neuts (auto) 8.4 H (2.0-8.3) x10*3/uL Chloride 109 H (96-108) mmol/L Carbon Dioxide 20 L (22-29) mmol/L Random Glucose 117 H (60-115) mg/dL Short CBC 12/31/22 Range/Units 13:34 WBC 12.9 H (4.8-10.8) X10*3/uL Hgb 12.0 (12.0-16.0) g/dl Hct 38.8 (37.0-47.0) % Plt Count 348 (160-400) X10*3/uL BMP 12/31/22 13:34 Sodium 140 Potassium 3.9 Chloride 109 H Carbon Dioxide 20 L BUN 13 Creatinine 0.72 Calcium 9.4 Liver Function 12/31/22 Range/Units 13:34 Total Bilirubin 0.3 (0.0-1.0) mg/dL AST 10 (5-31) U/L ALT 14 (0-31) U/L Alkaline Phosphatase 61 (39-117) U/L Albumin 3.7 (3.5-5.0) g/dL All other labs normal. Assessment and Plan (1) Abscess of breast: Status: Acute Plan 27-year-old female patient presenting with sudden onset of a right breast abscess as noted above. Attempted needle aspiration was unsuccessful probably due to the thickness of fluid. I discussed incision and drainage of this abscess collection. After a review of the procedure, risks, and alternatives, she consents to the incision and drainage. This was performed at the bedside under local anesthesia. She tolerated the procedure well. A large purulence collection was drained. Wound cultures were obtained. The wounds were packed with iodoform gauze and covered with dry sterile dressings. She was instructed on local wound care and will return to the office in approximately 1 week for wound check. Time Spent With Patient Time: Total time managing care of this patient today _30___ minutes. Procedures Date of Service Date of Service: 12/31/22 Abscess I/D Consent for Procedure: Emergent-no informed consent obtained Site: chest (Right breast) Side (if applicable): right Sedation/analgesia: none Anesthetic used: lidocaine 2% (With epi) Technique: incised with #11 blade Amount of fluid (mL): 10 (ML) Irrigation: Yes Packing used?: iodoform Additional comments: Patient tolerated the procedure well.
== END 2022-12-31 16:15 | disposition home or self-care (01) ==
PROVIDERS: Physician Assistant; Emergency Provider Emergency Medicine; PCP Internal Medicine
DX: N61.1 Abscess of the breast and nipple (principal); Z79.899 Other long term (current) drug therapy
CPT/HCPCS: 10030; 10140; 19020; 36415; 76642; 80053; 83605; 85025; 87040; 87070; 87205; 99283; 99284

== ENCOUNTER → 2022-12-31 13:24 | Outpatient (BNV) | payer OTHER, SELFPAY | PROVIDERS: Emergency Provider Emergency Medicine; PCP Internal Medicine; Visit Provider Surgery | DX: N61.1 Abscess of the breast and nipple (principal) | CPT/HCPCS: 10060; 99283 ==

== ENCOUNTER → 2022-12-31 14:03 | Outpatient (BNV) | payer OTHER, SELFPAY | PROVIDERS: Emergency Provider Emergency Medicine; PCP Internal Medicine; Visit Provider Radiology Diagnostic Radiology | DX: N61.1 Abscess of the breast and nipple (principal) | CPT/HCPCS: 10030 ==

== ENCOUNTER 2023-01-03 13:06 | Outpatient (AMB) | payer OTHER, SELFPAY ==
--- NOTE | 2023-01-03 13:08 | A.OFFVIS_ITS ---
Intake VS Expanded 01/03/23 13:09 Height 5 ft 2.5 in Weight 223 lb 12.8 oz BMI 40.3 BP 116/66 Blood Pressure Location Rt brachial Blood Pressure Position Sitting Pulse 86 Pulse Source Pulse Oximeter Temp 97.4 F Temperature Source Temporal Artery Scan Pulse Oximetry 95 Oxygen Delivery Method Room Air Body Fat 87.4 Body Fat Percentage 39.0 Free Fat Mass 136.4 Muscle Mass 129.6 Visceral Mass 9.0 Water Mass 98.2 BMR 1,920 Intake Visit Reasons: (OV) F/U SWL Allergies No Known Allergies Allergy (Verified 01/03/23 13:12) Medication List - Last Reconciled 01/03/23 by Kassidy Escobar PA-C albuterol sulfate 90 mcg/actuation 1 inh inhalation QID PRN albuterol sulfate mg inhalation Q6H PRN budesonide-formoterol 80-4.5 mcg/actuation (Symbicort) 2 puffs inhalation BID cephalexin 500 mg PO Q6H 7 days HPI HPI Comments History of Present Illness Details 27 yo woman had [employer] appt with DR Adame October 20, 2022 - where her height measurement was incorrect. She is 5 ft 2.5 and weighed 228 .1. BMI of 40.4. Has not started meal plan or exercise plan yet no pre op work up started yet. HEr sister had LSG at [facility] [employer]. Work from 4am - 9am wakes at 3:30 am naps from 10:30 am until 12 pm. Bed at 11pm 9am - bagel with cream cheese, water 5pm - eats at her mothers - chicken and rice, never eats vegetable. water OR Hillary sun Soda - Coke or Sprite Exercise - no exercise - no gym equipment or membership ETOH - not typically - seen in ED with hemetemesis due to alcohol intoxication - patient states has not drunk since then tobacco - none marijuana- none PFSH Medical History Asthma Morbid obesity Surgical History History of nasal surgery Hx of removal of cyst Family History Mother Hypertension Diabetes Father Hypertension Diabetes Son No problems noted. Social History Alcohol intake: never Patient Tobacco Use Status: Never used Tobacco Assessment & Plan Assessment & Plan (1) Morbid obesity: Code(s): E66.01 - Morbid (severe) obesity due to excess calories Plan: This is a 27 yo woman with morbid obesity - [employer] BMI 40.4, who will start SWL program to prepare for bariatric surgery now. Blood work, h pylori , CXR, ECG, Abd ULS and UGI have been ordered. She is being scheduled for RD and BH initial consultations. She will start SWL classes and watch at 3 classes before her next appt with Berna. 1. Adequate sleep of 7-8 hours per night discussed - states will stop naps and go to bed at 7 pm. 2. Healthy meal plan - stop skipping meals and stop all sweetened drinks All meals/MR's need to take 20 minutes to complete - needs to start eating vegetables 9 am - 30 gram shake 12 pm - 30 gram shake 3 pm- bar or yogurt 6 pm- dinner of 6 oz lean protein, 8 oz vegetable, 1 serving fruit Exercise - Cardio 4 d week MM or TBP videos 30 minutes, walk 2 miles in 40 minutes and monitor calories burned at least 350 for now. The importance of avoiding and breast feeding for at least 18 months after bariatric surgery was discussed in the information session and was reinforced today. NEED to ask about contraception Pt will purchase body composition analyzer (recommended list given to patient) and weight herself weekly. Next appt with me in 3 weeks. Text me with any questions and weekly weights. Patient is morbidly obese and is not considered stable at this time.?I spent a total of 50 minutes reviewing/updating records, examining the patient and counseling the patient on weight management as detailed above. (2) Asthma: Code(s): J45.909 - Unspecified asthma, uncomplicated Coding Level of Care Code Est Pt Level 5 (22269) Diagnoses Morbid obesity E66.01 Asthma J45.909
[2023-01-03 13:09] VITALS: BP 116/66; PULSE 86; TEMP 36.3; O2SAT 95; BMI 40.3
== END 2023-01-03 13:51 | disposition home or self-care (01) ==
PROVIDERS: Visit Provider Physician Assistant
DX: E66.01 Morbid (severe) obesity due to excess calories (principal); Z68.41 Body mass index [BMI] 40.0-44.9, adult; J45.909 Unspecified asthma, uncomplicated
CPT/HCPCS: 99215

== ENCOUNTER → 2023-01-03 13:06 | Outpatient (BNVA) | payer OTHER, SELFPAY | PROVIDERS: Visit Provider Physician Assistant | DX: E66.01 Morbid (severe) obesity due to excess calories (principal); J45.909 Unspecified asthma, uncomplicated; Z68.41 Body mass index [BMI] 40.0-44.9, adult | CPT/HCPCS: 99212 ==

== ENCOUNTER 2023-05-20 01:01 | Emergency (ER) | payer OTHER, SELFPAY ==
--- NOTE | ~2023-05-20 | CT_ITS ---
EXAMINATION: CT ABDOMEN AND PELVIS WITH CONTRAST CLINICAL INFORMATION: Right lower quadrant pain, rule out appendicitis COMPARISON: None available. TECHNIQUE: Multidetector volumetric images were obtained from the superior aspect of the liver through the pubic symphysis following administration 100 mL of Omnipaque 350 intravenous contrast. Sagittal and coronal reformatted images were obtained on the technologist's workstation. Oral contrast: No This CT examination was performed using dose optimization techniques as appropriate, variously including the following: *Automated exposure control *Adjustment of mA and/or kV according to patient size (this includes techniques or standardized protocols for targeted exams where dose is matched to indication/reason for exam; i.e. extremities or head) *Use of iterative reconstruction technique DLP: 789 mGy-cm FINDINGS: Limited evaluation in some regions due to motion artifact. LUNG BASES: Region of opacity in the right middle lobe with suspected volume loss, more suggestive of atelectasis. Additional subsegmental atelectasis at the lung bases. LIVER, GALLBLADDER, AND BILIARY TREE: The liver is normal in size, shape, and attenuation. No focal hepatic lesion or biliary ductal dilatation is present. Gallbladder appears contracted and is not well evaluated. PANCREAS: Unremarkable. SPLEEN: Unremarkable. ADRENAL GLANDS: Unremarkable. KIDNEYS AND URETERS: Bilateral nephrograms are symmetric. No hydronephrosis or obstructing calculus identified. BLADDER: Unremarkable. GASTROINTESTINAL TRACT: No evidence of bowel obstruction or significant wall thickening. Appendix is suspected to be collapsed; no inflammatory changes in its expected location. No free fluid or free air is seen. ABDOMINAL WALL: No significant hernia is appreciated. LYMPH NODES: Normal. VASCULAR: Unremarkable. PELVIC VISCERA: There is asymmetric fullness of the right adnexa with a suspected right adnexal cyst measuring approximately 2.9 cm. OSSEOUS STRUCTURES: Mild disc protrusion at L5-S1 with calcification along the annulus. Scattered degenerative endplate changes in the spine. CT/CT abdomen pelvis w IV con IMPRESSION: 1. Asymmetric fullness of the right adnexa with a suspected right adnexal cyst measuring approximately 2.9 cm. If there is clinical concern for acute ovarian pathology, this would be better assessed with pelvic ultrasound. 2. Appendix is suspected to be collapsed, without findings to suggest appendicitis. 3. Region of opacity in the right middle lobe with suspected volume loss, more suggestive of atelectasis.
--- NOTE | ~2023-05-20 | US_ITS ---
EXAMINATION: US PELVIS CLINICAL INFORMATION: Right lower quadrant pain, ovarian cyst, rule out torsion COMPARISON: CT from the same day TECHNIQUE: Ultrasound of the pelvis is performed using both transabdominal and transvaginal transducers along with Doppler. Transvaginal imaging is performed due to inadequate visualization transabdominally. FINDINGS: Uterus measures 8.5 x 3.9 x 5.5 cm. Endometrial stripe measures 0.4 cm in thickness. The right ovary measures 5.3 x 5.5 x 3.3 cm. There is a complex right ovarian cyst measuring 2.6 x 1.4 x 2.9 cm, suggestive of a hemorrhagic cyst. Left ovary measures 2.9 x 2.1 x 2.8 cm. Doppler evaluation demonstrates normal-appearing arterial and venous waveforms in both ovaries. No free fluid is seen. US/US pelvic ovarian doppler IMPRESSION: 1. Complex right ovarian cyst measuring up to 2.9 cm, suggestive of a hemorrhagic cyst. Follow-up ultrasound may be performed in 6-12 weeks to assess for resolution. 2. No findings to suggest ovarian torsion.
--- NOTE | ~2023-05-20 | US_ITS ---
EXAMINATION: US PELVIS CLINICAL INFORMATION: Right lower quadrant pain, ovarian cyst, rule out torsion COMPARISON: CT from the same day TECHNIQUE: Ultrasound of the pelvis is performed using both transabdominal and transvaginal transducers along with Doppler. Transvaginal imaging is performed due to inadequate visualization transabdominally. FINDINGS: Uterus measures 8.5 x 3.9 x 5.5 cm. Endometrial stripe measures 0.4 cm in thickness. The right ovary measures 5.3 x 5.5 x 3.3 cm. There is a complex right ovarian cyst measuring 2.6 x 1.4 x 2.9 cm, suggestive of a hemorrhagic cyst. Left ovary measures 2.9 x 2.1 x 2.8 cm. Doppler evaluation demonstrates normal-appearing arterial and venous waveforms in both ovaries. No free fluid is seen. US/US pelvic and transvaginal IMPRESSION: 1. Complex right ovarian cyst measuring up to 2.9 cm, suggestive of a hemorrhagic cyst. Follow-up ultrasound may be performed in 6-12 weeks to assess for resolution. 2. No findings to suggest ovarian torsion.
[2023-05-20 01:10] VITALS: BP 134/63; PULSE 86; RESP 16; TEMP 37.3; O2SAT 96; BMI 40.7
--- NOTE | 2023-05-20 01:30 | MHC.EDTECH ---
Patient brought in from waiting room, Labs and Urine were obtained and sent to lab.
[2023-05-20 01:32] LABS: Basophils Percent Auto 0.2 % (0-2); Eosinophils Absolute Auto 0.6 X10*3/uL (0.0-0.4); Eosinophils Percent Auto 4.1 % (0-4); Hematocrit 36.9 % (37.0-47.0); Hemoglobin 11.5 g/dl (12.0-16.0); Imm Gran Abs Auto 0.05 X10*3/uL (0.00-0.03); Imm Gran Pct Auto 0.3 % (0.0-0.4); Lymphocytes Absolute Auto 4.1 X10*3/uL (1.2-4.9); Lymphocytes Percent Auto 27.6 % (20-40); MANUAL DIFF FLAG NO; Mean Corpuscular HGB Conc 31.2 g/dl (31.0-35.0); Mean Corpuscular Volume 73.9 fL (80.0-98.0); Mean Platelet Volume 10.5 fL (9.4-12.3); Monocytes Absolute Auto 0.8 X10*3/uL (0.1-1.2); Monocytes Percent Auto 5.6 % (2-11); Neutrophils Absolute Auto 9.2 x10*3/uL (2.0-8.3); Neutrophils Percent Auto 62.2 % (45-73); Platelet Count 344 X10*3/uL (160-400); Red Blood Count 4.99 X10*6/uL (4.20-5.50); White Blood Count 14.7 X10*3/uL (4.8-10.8)
[2023-05-20 01:34] LABS: Appearance Urine Clear; Color Urine Yellow; Glucose Urine UA Negative (Negative); Leukocyte Esterase Urine Small (1+) (Negative); Nitrite Urine Negative (Negative); PH 5.5 (5.0-9.0); UMIC TRIGGER UACC YES; Urine Blood Negative (Negative); Urine Ketones Negative (Negative); Urine Protein Negative (Neg-Trace)
[2023-05-20 01:35] LABS: UPreg QC Valid YES; Urine Pregnancy NEGATIVE (NEGATIVE)
[2023-05-20 01:39] LABS: Bacteria Urine 1+ (None Seen); Hyaline Casts Urine 0-2 /LPF (0-2); UACC Culture Trigger YES
[2023-05-20 01:45] LABS: Alanine Aminotransferase 14 U/L (0-31); Albumin Level 3.9 g/dL (3.5-5.0); Alkaline Phosphatase 59 U/L (39-117); Anion Gap 12 (12-20); Aspartate Amino Transferase 13 U/L (5-31); Bilirubin Direct < 0.2 mg/dL (0.0-0.5); Bilirubin Total 0.2 mg/dL (0.0-1.0); Blood Urea Nitrogen 12 mg/dL (9-16); Calcium 9.2 mg/dL (8.4-10.2); Carbon Dioxide 21 mmol/L (22-29); Chloride 110 mmol/L (96-108); Creatinine Clr Calc Pharmacy 139.3; Estimated Glomerular Filt Rate > 60; Glucose Random 114 mg/dL (60-115); Lipase 19 U/L (8-78); Potassium 3.9 mmol/L (3.3-5.1); Sodium 139 mmol/L (135-145); Total Protein 7.2 g/dL (6.5-8.0)
[2023-05-20 02:39] VITALS: BP 110/61; PULSE 77; RESP 18; TEMP 36.6; O2SAT 97
--- NOTE | 2023-05-20 03:25 | ED_ITS ---
HPI - Abdominal Pain General Chief Complaint: Abdominal Pain Stated Complaint: kidney stones ? Time Seen by Provider: 05/20/23 03:09 Source: patient Mode of arrival: ambulatory Limitations: no limitations History of Present Illness HPI narrative: 28-year-old female who presents emergency department for evaluation of left- sided abdominal pain that started suddenly at 20:00 hours. She states that she felt like was punched in the left lower quadrant of her abdomen. She states that the pain was initially 10 out of intermittent. This is her 1st episode of this type of pain. Patient states she felt like she had to move her bowel so and had a pressure-like sensation in her rectal area. She did have dysuria but denied frequency or urgency. She denied fever, chills, chest pain, shortness of breath, nausea, vomiting or diarrhea. Related Data Home Medications Medication Instructions Recorded Confirmed albuterol sulfate 2.5 mg/3 mL mg inhalation Q6H PRN wheezing 03/29/22 01/03/23 (0.083 %) solution for nebulization budesonide-formoterol HFA 80 2 puff inhalation BID 10/02/22 01/03/23 mcg-4.5 mcg/actuation aerosol inhaler (Symbicort) Previous Rx's Medication Instructions Recorded albuterol sulfate 90 mcg/actuation 1 inh inhalation QID PRN shortness 12/24/22 aerosol inhaler of breath or wheezing #8.5 grams cephalexin 500 mg capsule 500 mg PO Q6H 7 days #28 caps 12/31/22 acetaminophen 500 mg tablet 1,000 mg (2 x 500 mg) PO Q6H PRN 05/20/23 (Tylenol Extra Strength) fever or pain #20 tabs ibuprofen 400 mg tablet 400 mg PO TID PRN fever or pain 05/20/23 #30 tabs oxycodone 5 mg tablet 5 mg PO Q6H PRN pain #10 tabs 05/20/23 Allergies Allergy/AdvReac Type Severity Reaction Status Date / Time No Known Allergies Allergy Verified 01/03/23 13:12 Review of Systems Review of Systems Yes all other systems are reviewed and are negative [facility] Past Medical History [facility] Narrative: Past medical history: Asthma. Surgical history: None. Social history: She denies tobacco, alcohol and drug use. Medical History Asthma Morbid obesity Surgical History Hx of removal of cyst History of nasal surgery Family History Family History Mother Hypertension Diabetes Father Hypertension Diabetes Son No problems noted. Social History Alcohol intake: never Patient Tobacco Use Status: Never used Tobacco Advance Directives: No Advance Directives Information Provided: Yes Physical Exam ED Vital Signs: Vital Signs - 24 hr 05/20/23 01:10 05/20/23 02:39 05/20/23 05:15 Temperature 99.2 F 98 F 98.5 F Pulse Rate 86 77 74 Respiratory Rate 16 18 12 Blood Pressure 134/63 110/61 95/51 L Pulse Oximetry 96 97 95 Oxygen Delivery Method Room Air Room Air Room Air BMI result Body Mass Index 40.7 Vital signs were normal Exam: General: Awake, alert in no distress Head: Normocephalic, atraumatic EENT: PERRL, Lids normal, sclera normal, conjunctiva normal, nose normal , ears normal, throat without erythema or exudates Neck: Supple, no adenopathy Lung: breath sounds symmetric, no wheezing, rales or rhonchi Chest: symmetric movement, nontender Heart: regular rate and rhythm, normal S1, S2 no murmurs or rubs Abdomen: soft, moderate right lower quadrant left lower quadrant tenderness, no left lower quadrant tenderness , nondistended, normal bowel sounds Back: no vertebral tenderness, no CVAT Extremities: no deformities, moves all extremities symmetrically Neuro: Awake, alert, oriented, normal speech, moves all extremities symmetrically Psych: Pleasant, cooperative Medical Decision Making Medical Decision Making MDM Narrative: 28-year-old female with history of asthma who presents emergency department for evaluation of sudden onset of left lower quadrant pain which she describes as a punching intermittent like pain initially 10/10 is currently 5/10 at the time my evaluation. Vital signs were normal. Abdominal exam revealed no left lower quadrant tenderness but she did have moderate suprapubic and right lower quadrant tenderness. Following evaluation was ordered: CBC, BMP, liver panel, lipase, urinalysis, urine test, CT scan of the abdomen pelvis with IV contrast Patient was treated with the following medications: Toradol 15 mg IV, Zofran 4 mg IV normal saline IV x1 L 03:29 My interpretation patient's laboratory evaluation is as follows: Elevated white blood count 92348. Elevated chloride 119 low bicarb 21. LFTs and lipase were normal. Urine test was negative. Urinalysis was positive for leukocyte esterase. Microscopic revealed 3-5 RBCs 6-10 wbc's, bacteria and 6-10 squamous cells-this is a non clean catch specimen and is nondiagnostic. 05:12 Patient's pain improved with the above medication however she still has significant right lower quadrant tenderness CT scan of the abdomen revealed right adnexal fullness with a 2.9 cm cyst appendix appeared to be collapse but there was no evidence for acute appendicitis Given the ovarian cyst in tenderness, will obtain a duplex ultrasound of the pelvis to rule out ovarian torsion Patient does not want any further medications at this time 06:52 The patient's duplex ultrasound revealed no torsion but the patient does have a complex right hemorrhage ovarian cyst measuring up to 2.9 cm. An acute hemorrhage into the cyst may explain the patient's pain and I did discuss this with the patient. Patient was given prescriptions for Tylenol, ibuprofen and oxycodone. Patient will need to follow-up with rn gynecology for re-evaluation. Differential Diagnosis Differential Diagnoses: The differential diagnosis associated with the presentation includes Differential diagnosis includes was not limited to renal colic, ureteral stone, ovarian cyst, pancreatitis, appendicitis, diverticulitis, anemia, electrolyte abnormality, urinary tract infection Admission/Observation Consideration of admission/observation: Escalation of care including admission/observation considered Lab Data MDM Lab Attestation statement: I reviewed the patient's lab results. 05/20/23 01:27 05/20/23 01:27 Labs: Lab Results 05/20/23 Range/Units 01:27 WBC 14.7 H (4.8-10.8) X10*3/uL RBC 4.99 (4.20-5.50) X10*6/uL Hgb 11.5 L (12.0-16.0) g/dl Hct 36.9 L (37.0-47.0) % MCV 73.9 L (80.0-98.0) fL MCH 23.0 L (27.0-33.0) pg MCHC 31.2 (31.0-35.0) g/dl RDW 16.0 (11.0-16.0) % Plt Count 344 (160-400) X10*3/uL MPV 10.5 (9.4-12.3) fL Immature Gran % (Auto) 0.3 (0.0-0.4) % Neut % (Auto) 62.2 (45-73) % Lymph % (Auto) 27.6 (20-40) % [place] % (Auto) 5.6 (2-11) % Eos % (Auto) 4.1 H (0-4) % Baso % (Auto) 0.2 (0-2) % Lymph # (Auto) 4.1 (1.2-4.9) X10*3/uL [place] # (Auto) 0.8 (0.1-1.2) X10*3/uL Eos # (Auto) 0.6 H (0.0-0.4) X10*3/uL Baso # (Auto) 0.0 (0.0-0.2) X10*3/uL Abs Immat Gran (auto) 0.05 H (0.00-0.03) X10*3/uL Absolute Neuts (auto) 9.2 H (2.0-8.3) x10*3/uL Absolute Nucleated RBC 0.000 (0.0-0.012) X10*3/uL Nucleated RBC % (auto) 0.0 (0.0-0.2) /100WBC Sodium 139 (135-145) mmol/L Potassium 3.9 (3.3-5.1) mmol/L Chloride 110 H (96-108) mmol/L Carbon Dioxide 21 L (22-29) mmol/L Anion Gap 12 (12-20) BUN 12 (9-16) mg/dL Creatinine 0.70 (0.5-1.4) mg/dL Estim Creat Clear Calc 139.3 Estimated GFR > 60 Random Glucose 114 (60-115) mg/dL Calcium 9.2 (8.4-10.2) mg/dL Total Bilirubin 0.2 (0.0-1.0) mg/dL Direct Bilirubin < 0.2 (0.0-0.5) mg/dL AST 13 (5-31) U/L ALT 14 (0-31) U/L Alkaline Phosphatase 59 (39-117) U/L Total Protein 7.2 (6.5-8.0) g/dL Albumin 3.9 (3.5-5.0) g/dL Lipase 19 (8-78) U/L Urine Color Yellow Urine Appearance Clear Urine pH 5.5 (5.0-9.0) Ur Specific [place] 1.020 (1.005-1.025) Urine Protein Negative (Neg-Trace) mg/dL Urine Glucose (UA) Negative (Negative) mg/dL Urine Ketones Negative (Negative) mg/dL Urine Blood Negative (Negative) Urine Nitrite Negative (Negative) Ur Leukocyte Esterase Small (1+) H (Negative) Urine RBC 3-5 H (0-2) /HPF Urine WBC 6-10 H (0-5) /HPF Ur Squamous Epith Cells 6-10 (0-2) /HPF Urine Bacteria 1+ (None Seen) Hyaline Casts 0-2 (0-2) /LPF Urine Test NEGATIVE (NEGATIVE) Radiology Impression Discussion of test interpretation with radiology: I have reviewed the radiologist's reading. Radiologist Impression: CT abdomen pelvis w IV con IMPRESSION: 1. Asymmetric fullness of the right adnexa with a suspected right adnexal cyst measuring approximately 2.9 cm. If there is clinical concern for acute ovarian pathology, this would be better assessed with pelvic ultrasound. 2. Appendix is suspected to be collapsed, without findings to suggest appendicitis. 3. Region of opacity in the right middle lobe with suspected volume loss, more suggestive of atelectasis. Dictated By: Devante Hooker MD US pelvic and transvaginal IMPRESSION: 1. Complex right ovarian cyst measuring up to 2.9 cm, suggestive of a hemorrhagic cyst. Follow-up ultrasound may be performed in 6-12 weeks to assess for resolution. 2. No findings to suggest ovarian torsion. Dictated By: Devante Hooker MD Prescription Management I considered prescription management with: Pain Medication Chronic Conditions Patient?s care impacted by: Other (Asthma) Medications Administered Discontinued Medications Generic Name Dose Route Start Last Admin Trade Name Freq PRN Reason Stop Dose Admin Sodium Chloride 1,000 mls @ 999 mls/hr 05/20/23 03:19 05/20/23 04:59 Ns IV 05/20/23 04:19 Infused .Q1H1M STA Infusion Iohexol 100 ml 05/20/23 04:20 05/20/23 04:21 Iohexol 350 Mg/Ml 100 Ml Infus..Btl IV 05/20/23 04:21 100 ml ONCE ONE Administration Ketorolac Tromethamine 15 mg 05/20/23 03:19 05/20/23 03:58 Ketorolac Tromethamine 15 Mg/Ml Vial IVPUSH 05/20/23 03:20 15 mg ONCE STA Administration Ondansetron HCl 4 mg 05/20/23 03:19 05/20/23 03:57 Ondansetron Hcl 4 Mg/2 Ml Vial IVPUSH 05/20/23 03:20 4 mg ONCE ONE Administration Discharge Plan Discharge Clinical Impression: Hemorrhagic cyst of right ovary Abdominal pain Qualifiers: Abdominal location: right lower quadrant Qualified Code(s): R10.31 - Right lower quadrant pain Patient Disposition: Home, Self-Care Instructions: Ovarian Cyst (ED) Additional Instructions: Your blood work did reveal an elevated white blood cell count otherwise was unremarkable. Your test was negative. Urinalysis was not consistent with a urine infection CT scan of your abdomen pelvis did not reveal any evidence for appendicitis however you did have a right ovarian cyst. The ultrasound the is consistent with a bleeding/hemorrhagic cyst in this may be the cause of your pain. Take ibuprofen 400 mg pills, 1 pills every 6 hours as needed for pain. Take Tylenol (acetaminophen) 500 mg pills, 2 pills every 6 hours as needed for pain. For pain not relieved by ibuprofen or Tylenol take oxycodone 5 mg pills, 1 pill every 4 hours as needed for pain. Do not drive or work while taking this medication since they can cause sleepiness. Oxycodone is a narcotic medication that can be addicting. If you are concerned about addiction you can ask the pharmacist for less pills or do not get this prescription filled. Follow-up with your doctor in 2 days. Please return to the emergency department if your symptoms get worse or if you develop any symptoms that are concerning to you. Prescriptions: New ibuprofen 400 mg tablet 400 mg PO TID PRN (Reason: fever or pain) Qty: 30 0RF oxycodone 5 mg tablet 5 mg PO Q6H PRN (Reason: pain) Qty: 10 0RF Rx Instructions: Patient may request partial refill; Partial Fill upon patient request. acetaminophen [Tylenol Extra Strength] 500 mg tablet 1,000 mg PO Q6H PRN (Reason: fever or pain) Qty: 20 0RF No Action cephalexin 500 mg capsule 500 mg PO Q6H 7 Days Qty: 28 0RF albuterol sulfate 90 mcg/actuation HFA aerosol inhaler 1 inh inhalation QID PRN (Reason: shortness of breath or wheezing) Qty: 8.5 0RF albuterol sulfate 2.5 mg /3 mL (0.083 %) solution for nebulization inhalation Q6H PRN (Reason: wheezing) budesonide-formoterol [Symbicort] 80-4.5 mcg/actuation HFA aerosol inhaler 2 puff inhalation BID Referrals: Shayne Harris MD [Physician] - 10 days (2.9 right complex hemorrhagic cyst)
[2023-05-20] MEDS: 0.9 % Sodium Chloride 1,000 ML 999 ML IV (03:55)
[2023-05-20] MEDS: ondansetron HCL 4 MG/2 ML VIAL IVPUSH (03:57)
[2023-05-20] MEDS: Ketorolac Tromethamine 15 MG/ML VIAL IVPUSH (03:58)
[2023-05-20] MEDS: iohexoL 350 MG/ML 100 ML INFUS..BTL IV (04:21)
[2023-05-20 05:15] VITALS: BP 95/51; PULSE 74; RESP 12; TEMP 36.9; O2SAT 95
[2023-05-20 07:38] VITALS: BP 104/50; PULSE 70; RESP 16
== END 2023-05-20 07:39 | disposition home or self-care (01) ==
PROVIDERS: Emergency Provider Emergency Medicine Emergency Medical Services
DX: N83.201 Unspecified ovarian cyst, right side (principal); N39.0 Urinary tract infection, site not specified; B96.20 Unspecified Escherichia coli [E. coli] as the cause of diseases classified elsewhere; R10.31 Right lower quadrant pain; E66.9 Obesity, unspecified; Z68.41 Body mass index [BMI] 40.0-44.9, adult
CPT/HCPCS: 36415; 74177; 76830; 76856; 80048; 80076; 81001; 81025; 83690; 85025; 87086; 87088; 87186; 93975; 96361; 96374; 96375; 99284; 99285; J1885; J2405; Q9967

== ENCOUNTER 2023-06-11 14:09 | Emergency (ER) | payer OTHER, SELFPAY ==
--- NOTE | 2023-06-11 14:46 | ED.GENADULT ---
HPI - General Adult General Chief complaint: Urogenital-Female Stated complaint: ovaries feel like rock Related Data Home Medications ?Medication ?Instructions ?Recorded ?Confirmed albuterol sulfate 2.5 mg/3 mL mg inhalation Q6H PRN wheezing 03/29/22 01/03/23 (0.083 %) solution for nebulization budesonide-formoterol HFA 80 2 puff inhalation BID 10/02/22 01/03/23 mcg-4.5 mcg/actuation aerosol inhaler (Symbicort) Previous Rx's ?Medication ?Instructions ?Recorded albuterol sulfate 90 mcg/actuation 1 inh inhalation QID PRN shortness 12/24/22 aerosol inhaler of breath or wheezing #8.5 grams cephalexin 500 mg capsule 500 mg PO Q6H 7 days #28 caps 12/31/22 acetaminophen 500 mg tablet 1,000 mg (2 x 500 mg) PO Q6H PRN 05/20/23 (Tylenol Extra Strength) fever or pain #20 tabs ibuprofen 400 mg tablet 400 mg PO TID PRN fever or pain 05/20/23 #30 tabs oxycodone 5 mg tablet 5 mg PO Q6H PRN pain #10 tabs 05/20/23 nitrofurantoin 100 mg PO Q12H 7 days #14 caps 05/24/23 monohydrate/macrocrystals 100 mg capsule (Macrobid) Allergies Allergy/AdvReac Type Severity Reaction Status Date / Time No Known Allergies Allergy Verified 01/03/23 13:12 COUNTS INCLUDE 234 BEDS AT THE [facility] Past Medical History Medical History Asthma Morbid obesity Surgical History Hx of removal of cyst History of nasal surgery Family History Family History Mother Hypertension Diabetes Father Hypertension Diabetes Son No problems noted. Social History Social History Alcohol intake: never Patient Tobacco Use Status: Never used Tobacco Smoked in Last 30 Days: No Use of substances other than those prescribed or required for medical reasons: No Advance Directives: No Advance Directives Information Provided: No Patient : No Physical Exam ED Vital Signs: BMI result Body Mass Index 41.7 Course Course Course Narrative: RME- 28 year old female presents for evaluation of left lower abdomen pain. Was diagnosed with a right ovarian cyst 3 weeks ago and reports this feels similar. Plan for labs, UA, US Medical Decision Making Lab Data 06/11/23 15:09 06/11/23 15:09 Labs: Lab Results 06/11/23 Range/Units 15:09 WBC 12.6 H (4.8-10.8) X10*3/uL RBC 4.98 (4.20-5.50) X10*6/uL Hgb 11.4 L (12.0-16.0) g/dl Hct 37.4 (37.0-47.0) % MCV 75.1 L (80.0-98.0) fL MCH 22.9 L (27.0-33.0) pg MCHC 30.5 L (31.0-35.0) g/dl RDW 16.1 H (11.0-16.0) % Plt Count 327 (160-400) X10*3/uL MPV 9.9 (9.4-12.3) fL Immature Gran % (Auto) 0.5 H (0.0-0.4) % Neut % (Auto) 64.0 (45-73) % Lymph % (Auto) 27.5 (20-40) % [place] % (Auto) 6.0 (2-11) % Eos % (Auto) 1.8 (0-4) % Baso % (Auto) 0.2 (0-2) % Lymph # (Auto) 3.5 (1.2-4.9) X10*3/uL [place] # (Auto) 0.8 (0.1-1.2) X10*3/uL Eos # (Auto) 0.2 (0.0-0.4) X10*3/uL Baso # (Auto) 0.0 (0.0-0.2) X10*3/uL Abs Immat Gran (auto) 0.06 H (0.00-0.03) X10*3/uL Absolute Neuts (auto) 8.0 (2.0-8.3) x10*3/uL Absolute Nucleated RBC 0.000 (0.0-0.012) X10*3/uL Nucleated RBC % (auto) 0.0 (0.0-0.2) /100WBC Sodium 143 (135-145) mmol/L Potassium 3.8 (3.3-5.1) mmol/L Chloride 110 H (96-108) mmol/L Carbon Dioxide 25 (22-29) mmol/L Anion Gap 12 (12-20) BUN 10 (9-16) mg/dL Creatinine 0.71 (0.5-1.4) mg/dL Estim Creat Clear Calc 139.4 Estimated GFR > 60 Random Glucose 84 (60-115) mg/dL Calcium 9.2 (8.4-10.2) mg/dL Beta HCG, Quant 233 mIU/mL Urine Color Yellow Urine Appearance Cloudy Urine pH 5.5 (5.0-9.0) Ur Specific [place] 1.020 (1.005-1.025) Urine Protein Negative (Neg-Trace) mg/dL Urine Glucose (UA) Negative (Negative) mg/dL Urine Ketones Negative (Negative) mg/dL Urine Blood Negative (Negative) Urine Nitrite Negative (Negative) Ur Leukocyte Esterase Large (3+) H (Negative) Urine RBC 0-2 (0-2) /HPF Urine WBC 0-5 (0-5) /HPF Ur Squamous Epith Cells 11-20 (0-2) /HPF Urine Bacteria 2+ (None Seen) Hyaline Casts 3-5 (0-2) /LPF Urine Test POSITIVE H (NEGATIVE) Discharge Plan Discharge Clinical Impression: Abdominal pain Patient Disposition: Left W/O Completing Treatment Prescriptions: No Action cephalexin 500 mg capsule 500 mg PO Q6H 7 Days Qty: 28 0RF ibuprofen 400 mg tablet 400 mg PO TID PRN (Reason: fever or pain) Qty: 30 0RF oxycodone 5 mg tablet 5 mg PO Q6H PRN (Reason: pain) Qty: 10 0RF Rx Instructions: Patient may request partial refill; Partial Fill upon patient request. acetaminophen [Tylenol Extra Strength] 500 mg tablet 1,000 mg PO Q6H PRN (Reason: fever or pain) Qty: 20 0RF nitrofurantoin monohyd/m-cryst [Macrobid] 100 mg capsule 100 mg PO Q12H 7 Days Qty: 14 0RF Rx Instructions: must administer with a meal/food albuterol sulfate 90 mcg/actuation HFA aerosol inhaler 1 inh inhalation QID PRN (Reason: shortness of breath or wheezing) Qty: 8.5 0RF albuterol sulfate 2.5 mg /3 mL (0.083 %) solution for nebulization inhalation Q6H PRN (Reason: wheezing) budesonide-formoterol [Symbicort] 80-4.5 mcg/actuation HFA aerosol inhaler 2 puff inhalation BID Interventions: LWBS Worksheet Last Done: 06/11/23 17:19 Discharge Date/Time: 06/11/23 17:18
[2023-06-11 14:47] VITALS: BP 111/57; PULSE 86; RESP 17; TEMP 36.6; O2SAT 95; BMI 41.7
[2023-06-11 15:14] LABS: MANUAL DIFF FLAG NO
[2023-06-11 15:17] LABS: Appearance Urine Cloudy; Basophils Percent Auto 0.2 % (0-2); Color Urine Yellow; Eosinophils Absolute Auto 0.2 X10*3/uL (0.0-0.4); Eosinophils Percent Auto 1.8 % (0-4); Glucose Urine UA Negative (Negative); Hematocrit 37.4 % (37.0-47.0); Hemoglobin 11.4 g/dl (12.0-16.0); Imm Gran Abs Auto 0.06 X10*3/uL (0.00-0.03); Imm Gran Pct Auto 0.5 % (0.0-0.4); Leukocyte Esterase Urine Large (3+) (Negative); Lymphocytes Absolute Auto 3.5 X10*3/uL (1.2-4.9); Lymphocytes Percent Auto 27.5 % (20-40); Mean Corpuscular HGB Conc 30.5 g/dl (31.0-35.0); Mean Corpuscular Hemoglobin 22.9 pg (27.0-33.0); Mean Corpuscular Volume 75.1 fL (80.0-98.0); Mean Platelet Volume 9.9 fL (9.4-12.3); Monocytes Absolute Auto 0.8 X10*3/uL (0.1-1.2); Nitrite Urine Negative (Negative); PH 5.5 (5.0-9.0); Platelet Count 327 X10*3/uL (160-400); Red Blood Count 4.98 X10*6/uL (4.20-5.50); Red Cell Distribution Width 16.1 % (11.0-16.0); UMIC TRIGGER UACC YES; Urine Blood Negative (Negative); Urine Ketones Negative (Negative); Urine Protein Negative (Neg-Trace); White Blood Count 12.6 X10*3/uL (4.8-10.8)
[2023-06-11 15:24] LABS: UPreg QC Valid YES; Urine Pregnancy POSITIVE (NEGATIVE)
[2023-06-11 15:31] LABS: Anion Gap 12 (12-20); Blood Urea Nitrogen 10 mg/dL (9-16); Calcium 9.2 mg/dL (8.4-10.2); Carbon Dioxide 25 mmol/L (22-29); Chloride 110 mmol/L (96-108); Creatinine Clr Calc Pharmacy 139.4; Estimated Glomerular Filt Rate > 60; Glucose Random 84 mg/dL (60-115); Potassium 3.8 mmol/L (3.3-5.1); Sodium 143 mmol/L (135-145)
[2023-06-11 15:46] LABS: Bacteria Urine 2+ (None Seen); RBC Urine 0-2 /HPF (0-2); UACC Culture Trigger YES; WBC Urine 0-5 /HPF (0-5)
[2023-06-11 16:05] LABS: HCG Quantitative 233 mIU/mL
== END 2023-06-11 17:18 | disposition left against medical advice (07) ==
PROVIDERS: Physician Assistant; Emergency Provider Internal Medicine; PCP Internal Medicine
DX: R10.32 Left lower quadrant pain (principal)
CPT/HCPCS: 36415; 80048; 81001; 81025; 84702; 85025; 87086; 99282; 99283

== ENCOUNTER 2023-06-12 18:57 | Emergency (ER) | payer OTHER, SELFPAY ==
--- NOTE | ~2023-06-12 | US_ITS ---
EXAMINATION: US OBSTETRICAL ULTRASOUND CLINICAL INFORMATION: Right lower quadrant pain. Status post 12:15. Rule out RPOC's COMPARISON: Ultrasound pelvis 05/20/2023. LMP: Unknown. Gestational age by maternal dates is unknown. Estimated date of delivery by maternal dates is unknown. TECHNIQUE: Transabdominal and transvaginal imaging of pelvis is performed. FINDINGS: The uterus is anteverted measuring 6.7 x 4.4 x 4.9 cm and endometrial thickness of 0.4 cm. The uterus is slightly heterogeneous but no focal lesion seen. The right ovary measures 3.5 x 3.0 x 2.8 cm and volume 15.4 mL. There is anechoic small cyst measuring 1.0 x 1.4 x 1.1 cm. Question corpus luteal cyst. Previously right ovary measured 5.3 x 5.5 x 3.3 cm. Left ovary measures 2.5 x 2.3 x 1.9 cm and volume 5.7 mL. It appears unremarkable. Previously left ovary measured 2.9 x 2.1 x 2.8 seen. There is normal arterial and venous flow seen in both ovaries on Doppler exam. US/US pelvic ovarian doppler IMPRESSION: Unremarkable uterus. Small probable corpus luteal cyst right ovary. Left ovary is normal. There is no evidence of ovarian torsion as there is normal arterial and venous flow seen to both ovaries on Doppler exam.
--- NOTE | ~2023-06-12 | US_ITS ---
EXAMINATION: US OBSTETRICAL ULTRASOUND CLINICAL INFORMATION: Right lower quadrant pain. Status post 12:15. Rule out RPOC's COMPARISON: Ultrasound pelvis 05/20/2023. LMP: Unknown. Gestational age by maternal dates is unknown. Estimated date of delivery by maternal dates is unknown. TECHNIQUE: Transabdominal and transvaginal imaging of pelvis is performed. FINDINGS: The uterus is anteverted measuring 6.7 x 4.4 x 4.9 cm and endometrial thickness of 0.4 cm. The uterus is slightly heterogeneous but no focal lesion seen. The right ovary measures 3.5 x 3.0 x 2.8 cm and volume 15.4 mL. There is anechoic small cyst measuring 1.0 x 1.4 x 1.1 cm. Question corpus luteal cyst. Previously right ovary measured 5.3 x 5.5 x 3.3 cm. Left ovary measures 2.5 x 2.3 x 1.9 cm and volume 5.7 mL. It appears unremarkable. Previously left ovary measured 2.9 x 2.1 x 2.8 seen. There is normal arterial and venous flow seen in both ovaries on Doppler exam. US/US OB pelvic and transvaginal IMPRESSION: Unremarkable uterus. Small probable corpus luteal cyst right ovary. Left ovary is normal. There is no evidence of ovarian torsion as there is normal arterial and venous flow seen to both ovaries on Doppler exam.
[2023-06-12 19:05] VITALS: BP 133/86; PULSE 82; RESP 18; TEMP 36.6; O2SAT 95; BMI 40.4
--- NOTE | 2023-06-12 19:11 | ED_ITS ---
HPI - General Adult General Chief complaint: Abdominal Pain Stated complaint: Lower R abd pain? Time Seen by Provider: 06/12/23 21:29 Source: patient, RN notes reviewed and old records reviewed Mode of arrival: ambulatory Limitations: no limitations History of Present Illness HPI narrative: 28-year-old female presents for evaluation of lower abdominal/pelvic pain. [facility] She reports that she has had crampy abdominal pain since then. Denies any significant vaginal bleeding or discharge She has been taking ibuprofen with minimal relief Patient checked into this hospital yesterday but left before ultrasound was completed Related Data Home Medications Medication Instructions Recorded Confirmed albuterol sulfate 2.5 mg/3 mL mg inhalation Q6H PRN wheezing 03/29/22 01/03/23 (0.083 %) solution for nebulization budesonide-formoterol HFA 80 2 puff inhalation BID 10/02/22 01/03/23 mcg-4.5 mcg/actuation aerosol inhaler (Symbicort) Previous Rx's Medication Instructions Recorded albuterol sulfate 90 mcg/actuation 1 inh inhalation QID PRN shortness 12/24/22 aerosol inhaler of breath or wheezing #8.5 grams cephalexin 500 mg capsule 500 mg PO Q6H 7 days #28 caps 12/31/22 acetaminophen 500 mg tablet 1,000 mg (2 x 500 mg) PO Q6H PRN 05/20/23 (Tylenol Extra Strength) fever or pain #20 tabs ibuprofen 400 mg tablet 400 mg PO TID PRN fever or pain 05/20/23 #30 tabs oxycodone 5 mg tablet 5 mg PO Q6H PRN pain #10 tabs 05/20/23 nitrofurantoin 100 mg PO Q12H 7 days #14 caps 05/24/23 monohydrate/macrocrystals 100 mg capsule (Macrobid) Allergies Allergy/AdvReac Type Severity Reaction Status Date / Time No Known Allergies Allergy Verified 01/03/23 13:12 Review of Systems 2 Constitutional: Constitutional: Denies chills and Denies fever(s) Cardiovascular: Cardiovascular: Denies chest pain Gastrointestinal: Gastrointestinal: Reports abdominal pain, Denies nausea and Denies vomiting Genitourinary: Genitourinary: Denies abnormal vaginal bleeding, Denies difficulty voiding, Denies dysuria and Reports pelvic pain Musculoskeletal: Musculoskeletal: Denies back pain Integumentary/Breasts: Skin/Breast: Denies rash PMFSH Past Medical History Medical History Asthma Morbid obesity Surgical History Hx of removal of cyst History of nasal surgery Family History Family History Mother Hypertension Diabetes Father Hypertension Diabetes Son No problems noted. Social History Social History Alcohol intake: never Patient Tobacco Use Status: Never used Tobacco Smoked in Last 30 Days: No Use of substances other than those prescribed or required for medical reasons: No Advance Directives: No Advance Directives Information Provided: No Patient : No Physical Exam ED Vital Signs: Vital Signs - 24 hr 06/12/23 19:05 06/12/23 21:31 Temperature 98 F 98.0 F Pulse Rate 82 76 Respiratory Rate 18 16 Blood Pressure 133/86 116/70 Pulse Oximetry 95 97 Oxygen Delivery Method Room Air Room Air BMI result Body Mass Index 40.4 Const General: healthy appearing, comfortable, no acute distress, alert and awake Nutritional Appearance: well nourished Orientation/consciousness: patient oriented x3 HENMT Head: Yes normocephalic and Yes atraumatic Eyes Eyelids: Yes eyelids normal Conjunctivae: conjunctivae normal Sclerae: sclerae normal Corneas: corneas normal Pupils: Equal, round and reactive pupils present EOM: EOMs intact bilaterally Neck Neck: Yes full ROM Resp Effort & Inspection: normal respiratory effort, able to speak in complete sentences and not labored GI Inspection: No distended Palpation (GI): Soft to palpation, not firm, Tenderness to palpation present (GI) suprapubicly, no guarding and not rigid Skin General skin exam: elasticity normal Neuro General: patient oriented x3 Cranial nerves: Yes Equal, round and reactive pupils present and Yes Bilaterally intact EOM present Cognition (Neuro): normal cognition Extrem Other: Moving all extremities well without any obvious deformities Course Course Course Narrative: RME: 28 yold female s/p on saturday presents to the ED abdominal/pelvic pain since procedure. patient denies nausea or vomitting. labs and repeat ultrasound ordered. Medical Decision Making Medical Decision Making [facility] Narrative: 28-year-old female presents for evaluation of lower abdominal pain. She mentioned that she had a recent 5 days ago. Her HCG is trending down compared to yesterday. This is indicative of successful . There is no evidence of retained products of conception on repeat ultrasound. No evidence of adnexal masses. Patient declines analgesia at this time. [facility] can [facility] Differential Diagnosis Differential Diagnoses: The differential diagnosis associated with the presentation includes Pelvic pain Dysmenorrhea Ectopic Retained products of conception Elective Lab Data [facility] Lab Attestation statement: I reviewed the patient's lab results. Mild leukocytosis to 13.3, very slight anemia with a hemoglobin 11.6 hematocrit of 37.0. This is consistent with her recent baseline. No significant electrolyte abnormalities. HCG has decreased to 136 down from 233 yesterday 06/12/23 19:57 06/12/23 19:57 Labs: Lab Results 06/12/23 Range/Units 19:57 WBC 13.3 H (4.8-10.8) X10*3/uL RBC 4.99 (4.20-5.50) X10*6/uL Hgb 11.6 L (12.0-16.0) g/dl Hct 37.0 (37.0-47.0) % MCV 74.1 L (80.0-98.0) fL MCH 23.2 L (27.0-33.0) pg MCHC 31.4 (31.0-35.0) g/dl RDW 16.2 H (11.0-16.0) % Plt Count 333 (160-400) X10*3/uL MPV 10.6 (9.4-12.3) fL Immature Gran % (Auto) 0.3 (0.0-0.4) % Neut % (Auto) 52.1 (45-73) % Lymph % (Auto) 38.7 (20-40) % [place] % (Auto) 6.0 (2-11) % Eos % (Auto) 2.6 (0-4) % Baso % (Auto) 0.3 (0-2) % Lymph # (Auto) 5.1 H (1.2-4.9) X10*3/uL [place] # (Auto) 0.8 (0.1-1.2) X10*3/uL Eos # (Auto) 0.4 (0.0-0.4) X10*3/uL Baso # (Auto) 0.0 (0.0-0.2) X10*3/uL Abs Immat Gran (auto) 0.04 H (0.00-0.03) X10*3/uL Absolute Neuts (auto) 6.9 (2.0-8.3) x10*3/uL Absolute Nucleated RBC 0.000 (0.0-0.012) X10*3/uL Nucleated RBC % (auto) 0.0 (0.0-0.2) /100WBC Smear Tech's Comments VERIFIED PT 11.7 (11.1-13.3) SEC INR 1.0 (0.9-1.1) APTT 29.9 (26.0-36.4) SEC Sodium 142 (135-145) mmol/L Potassium 3.8 (3.3-5.1) mmol/L Chloride 109 H (96-108) mmol/L Carbon Dioxide 24 (22-29) mmol/L Anion Gap 13 (12-20) BUN 12 (9-16) mg/dL Creatinine 0.66 (0.5-1.4) mg/dL Estim Creat Clear Calc 152.6 Estimated GFR > 60 Random Glucose 76 (60-115) mg/dL Calcium 9.3 (8.4-10.2) mg/dL Total Bilirubin 0.2 (0.0-1.0) mg/dL AST 12 (5-31) U/L ALT 14 (0-31) U/L Alkaline Phosphatase 64 (39-117) U/L Total Protein 7.4 (6.5-8.0) g/dL Albumin 3.9 (3.5-5.0) g/dL Beta HCG, Quant 136 mIU/mL Radiology Impression Discussion of test interpretation with radiology: I have reviewed the radiologist's reading. (Unremarkable uterus) Discharge Plan Discharge Clinical Impression: Pelvic pain, Elective Patient Disposition: Home, Self-Care Instructions: Pelvic Pain (ED) Additional Instructions: Your pain is likely related to your recent elective He continue to use ibuprofen/Tylenol for pain I [facility] and see what recommendations they have 4 year Prescriptions: No Action cephalexin 500 mg capsule 500 mg PO Q6H 7 Days Qty: 28 0RF ibuprofen 400 mg tablet 400 mg PO TID PRN (Reason: fever or pain) Qty: 30 0RF oxycodone 5 mg tablet 5 mg PO Q6H PRN (Reason: pain) Qty: 10 0RF Rx Instructions: Patient may request partial refill; Partial Fill upon patient request. acetaminophen [Tylenol Extra Strength] 500 mg tablet 1,000 mg PO Q6H PRN (Reason: fever or pain) Qty: 20 0RF nitrofurantoin monohyd/m-cryst [Macrobid] 100 mg capsule 100 mg PO Q12H 7 Days Qty: 14 0RF Rx Instructions: must administer with a meal/food albuterol sulfate 90 mcg/actuation HFA aerosol inhaler 1 inh inhalation QID PRN (Reason: shortness of breath or wheezing) Qty: 8.5 0RF albuterol sulfate 2.5 mg /3 mL (0.083 %) solution for nebulization inhalation Q6H PRN (Reason: wheezing) budesonide-formoterol [Symbicort] 80-4.5 mcg/actuation HFA aerosol inhaler 2 puff inhalation BID Interventions: ED Discharge Assessment Last Done: 06/12/23 21:43 Discharge Date/Time: 06/12/23 21:40
[2023-06-12 20:22] LABS: Basophils Percent Auto 0.3 % (0-2); Eosinophils Absolute Auto 0.4 X10*3/uL (0.0-0.4); Eosinophils Percent Auto 2.6 % (0-4); Hemoglobin 11.6 g/dl (12.0-16.0); Imm Gran Abs Auto 0.04 X10*3/uL (0.00-0.03); Imm Gran Pct Auto 0.3 % (0.0-0.4); Lymphocytes Absolute Auto 5.1 X10*3/uL (1.2-4.9); Lymphocytes Percent Auto 38.7 % (20-40); MANUAL DIFF FLAG SCAN; Mean Corpuscular HGB Conc 31.4 g/dl (31.0-35.0); Mean Corpuscular Hemoglobin 23.2 pg (27.0-33.0); Mean Corpuscular Volume 74.1 fL (80.0-98.0); Mean Platelet Volume 10.6 fL (9.4-12.3); Monocytes Absolute Auto 0.8 X10*3/uL (0.1-1.2); Neutrophils Absolute Auto 6.9 x10*3/uL (2.0-8.3); Neutrophils Percent Auto 52.1 % (45-73); Platelet Count 333 X10*3/uL (160-400); Red Blood Count 4.99 X10*6/uL (4.20-5.50); Red Cell Distribution Width 16.2 % (11.0-16.0); SCAN SMEAR FLAG 1; White Blood Count 13.3 X10*3/uL (4.8-10.8)
[2023-06-12 20:30] LABS: Prothrombin Time 11.7 SEC (11.1-13.3)
[2023-06-12 20:32] LABS: Partial Thromboplastin Time 29.9 SEC (26.0-36.4)
[2023-06-12 20:41] LABS: Alanine Aminotransferase 14 U/L (0-31); Albumin Level 3.9 g/dL (3.5-5.0); Alkaline Phosphatase 64 U/L (39-117); Anion Gap 13 (12-20); Aspartate Amino Transferase 12 U/L (5-31); Bilirubin Total 0.2 mg/dL (0.0-1.0); Blood Urea Nitrogen 12 mg/dL (9-16); Calcium 9.3 mg/dL (8.4-10.2); Carbon Dioxide 24 mmol/L (22-29); Chloride 109 mmol/L (96-108); Creatinine Clr Calc Pharmacy 152.6; Estimated Glomerular Filt Rate > 60; Glucose Random 76 mg/dL (60-115); Potassium 3.8 mmol/L (3.3-5.1); Sodium 142 mmol/L (135-145); Total Protein 7.4 g/dL (6.5-8.0)
[2023-06-12 20:42] LABS: HCG Quantitative 136 mIU/mL
[2023-06-12 20:43] LABS: SLIDE REVIEW VERIFIED
[2023-06-12 21:31] VITALS: BP 116/70; PULSE 76; RESP 16; TEMP 36.7; O2SAT 97
== END 2023-06-12 21:40 | disposition home or self-care (01) ==
PROVIDERS: Physician Assistant; Emergency Provider Student in an Organized Health Care Education/Training Program; PCP Internal Medicine
DX: R10.2 Pelvic and perineal pain (principal); Z79.899 Other long term (current) drug therapy
CPT/HCPCS: 36415; 76801; 76817; 80053; 84702; 85025; 85610; 85730; 93975; 99284

== ENCOUNTER 2023-11-26 00:01 | Emergency (ER) | payer OTHER, SELFPAY ==
[2023-11-26 00:28] VITALS: BP 115/78; PULSE 87; RESP 18; TEMP 37.1; O2SAT 98; BMI 43.9
== END 2023-11-26 01:45 | disposition left against medical advice (07) ==
PROVIDERS: Emergency Provider Emergency Medicine
DX: N61.1 Abscess of the breast and nipple (principal); Z53.21 Procedure and treatment not carried out due to patient leaving prior to being seen by health care provider
CPT/HCPCS: 99281

== ENCOUNTER 2023-12-29 00:19 | Emergency (ER) | payer OTHER, SELFPAY ==
[2023-12-29 01:46] VITALS: BP 126/57; PULSE 77; RESP 12; TEMP 36.7; O2SAT 96; BMI 38.9
== END 2023-12-29 06:08 | disposition left against medical advice (07) ==
LOC: HO.ED 05:57
PROVIDERS: Emergency Provider Emergency Medicine
DX: N60.01 Solitary cyst of right breast (principal); Z04.1 Encounter for examination and observation following transport accident
CPT/HCPCS: 99281

== ENCOUNTER 2024-01-30 01:30 | Emergency (ER) | payer OTHER, SELFPAY ==
[2024-01-30 01:39] VITALS: BP 136/76; PULSE 113; RESP 20; TEMP 37.2; O2SAT 95; BMI 38.9
[2024-01-30 02:10] LABS: MANUAL DIFF FLAG NO
[2024-01-30 02:13] LABS: Basophils Percent Auto 0.3 % (0-2); Eosinophils Absolute Auto 0.4 X10*3/uL (0.0-0.4); Eosinophils Percent Auto 3.1 % (0-4); Hematocrit 37.7 % (37.0-47.0); Hemoglobin 12.1 g/dl (12.0-16.0); Imm Gran Abs Auto 0.05 X10*3/uL (0.00-0.03); Imm Gran Pct Auto 0.4 % (0.0-0.4); Lymphocytes Absolute Auto 4.6 X10*3/uL (1.2-4.9); Lymphocytes Percent Auto 35.9 % (20-40); Mean Corpuscular HGB Conc 32.1 g/dl (31.0-35.0); Mean Corpuscular Hemoglobin 23.7 pg (27.0-33.0); Mean Corpuscular Volume 73.8 fL (80.0-98.0); Mean Platelet Volume 10.6 fL (9.4-12.3); Monocytes Absolute Auto 0.8 X10*3/uL (0.1-1.2); Monocytes Percent Auto 6.2 % (2-11); Neutrophils Absolute Auto 6.9 x10*3/uL (2.0-8.3); Neutrophils Percent Auto 54.1 % (45-73); Platelet Count 349 X10*3/uL (160-400); Red Blood Count 5.11 X10*6/uL (4.20-5.50); Red Cell Distribution Width 15.8 % (11.0-16.0); White Blood Count 12.7 X10*3/uL (4.8-10.8)
[2024-01-30 02:29] LABS: Alanine Aminotransferase 15 U/L (0-31); Albumin Level 4.4 g/dL (3.5-5.0); Alkaline Phosphatase 55 U/L (39-117); Anion Gap 13 (12-20); Aspartate Amino Transferase 15 U/L (5-31); Bilirubin Direct < 0.2 mg/dL (0.0-0.5); Bilirubin Total 0.2 mg/dL (0.0-1.0); Blood Urea Nitrogen 12 mg/dL (9-16); Calcium 10.3 mg/dL (8.4-10.2); Carbon Dioxide 24 mmol/L (22-29); Chloride 110 mmol/L (96-108); Creatinine Clr Calc Pharmacy 120.8; Estimated Glomerular Filt Rate > 60; Glucose Random 100 mg/dL (60-115); Potassium 4.1 mmol/L (3.3-5.1); Sodium 143 mmol/L (135-145); Total Protein 7.7 g/dL (6.5-8.0)
[2024-01-30 02:35] LABS: HCG Quantitative < 2 mIU/mL
== END 2024-01-30 05:28 | disposition left against medical advice (07) ==
PROVIDERS: Emergency Provider Emergency Medicine
DX: R11.10 Vomiting, unspecified (principal); F41.9 Anxiety disorder, unspecified; Z79.899 Other long term (current) drug therapy; Z53.21 Procedure and treatment not carried out due to patient leaving prior to being seen by health care provider
CPT/HCPCS: 36415; 80048; 80076; 84702; 85025; 99281; 99283

== ENCOUNTER 2024-02-02 00:44 | Emergency (ER) | payer OTHER, SELFPAY ==
[2024-02-02 00:48] VITALS: BP 132/77; PULSE 93; RESP 19; TEMP 36.6; O2SAT 98; BMI 33.8
--- NOTE | 2024-02-02 02:05 | ED_ITS ---
HPI - Nausea/Vomiting/Diarrhea General Chief complaint: Nausea/Vomiting/Diarrhea Stated complaint: n/v Time Seen by Provider: 02/02/24 01:48 Source: patient Mode of arrival: ambulatory Limitations: no limitations History of Present Illness ED Provider: DR. Mayer HPI Narrative: 29-year-old female came in for evaluation of nausea and vomiting for the past 3- 4 days. Patient started on weekly Wegovy shot for weight loss for the past 6 weeks, last week dose was higher patient started to feel nausea vomiting unable to tolerate p.o. intake for the past 3-4 days slight upper abdominal discomfort. Patient been having loose stool, no recent travel, no known exposure to sick contacts, no recent use of antibiotic, patient work at [employer] but not aware of sick contact exposure. No dysuria, no frequency urination, no vaginal discharge or bleed, patient declined chance of being . Last bowel movement was this morning, passing flatus, no history of intra- abdominal surgery. Related Data Home Medications ?Medication ?Instructions ?Recorded ?Confirmed albuterol sulfate 2.5 mg/3 mL mg inhalation Q6H PRN wheezing 03/29/22 01/03/23 (0.083 %) solution for nebulization budesonide-formoterol HFA 80 2 puff inhalation BID 10/02/22 01/03/23 mcg-4.5 mcg/actuation aerosol inhaler (Symbicort) Previous Rx's ?Medication ?Instructions ?Recorded albuterol sulfate 90 mcg/actuation 1 inh inhalation QID PRN shortness 12/24/22 aerosol inhaler of breath or wheezing #8.5 grams cephalexin 500 mg capsule 500 mg PO Q6H 7 days #28 caps 12/31/22 acetaminophen 500 mg tablet 1,000 mg (2 x 500 mg) PO Q6H PRN 05/20/23 (Tylenol Extra Strength) fever or pain #20 tabs ibuprofen 400 mg tablet 400 mg PO TID PRN fever or pain 05/20/23 #30 tabs oxycodone 5 mg tablet 5 mg PO Q6H PRN pain #10 tabs 05/20/23 nitrofurantoin 100 mg PO Q12H 7 days #14 caps 05/24/23 monohydrate/macrocrystals 100 mg capsule (Macrobid) ondansetron 4 mg disintegrating 4 mg PO Q8H PRN nausea and 02/02/24 tablet vomiting #7 tabs Allergies Allergy/AdvReac Type Severity Reaction Status Date / Time No Known Allergies Allergy Verified 02/02/24 00:50 Review of Systems 2 Review of Systems: All other systems are reviewed and are negative Constitutional: Reports as per HPI and Reports no additional constitutional complaints Eyes: Reports as per HPI and Reports no additional eye complaints Reports system reviewed and no additional complaints, except as documented Cardiovascular: Reports as per HPI and Reports no additional cardiovascular complaints Respiratory: Reports as per HPI and Reports no additional respiratory complaints Gastrointestinal: Reports as per HPI and Reports no additional gastrointestinal complaints Genitourinary: Reports no additional female genitourinary complaints Musculoskeletal: Reports no additional musculoskeletal complaints Skin/Breast: Reports system reviewed and no additional complaints, except as docu Psychiatric: Reports no additional psychiatric complaints Endocrine: Reports no additional endocrine complaints Hematologic/Lymphatic: Reports no additional hematologic/lymphatic complaints Allergic/Immunologic: Reports no additional allergic/immunologic complaints Reports system reviewed and no additional complaints, except as documented and Reports Abnormal speech present [facility] Past Medical History Medical History Asthma Morbid obesity Surgical History Hx of removal of cyst History of nasal surgery Family History Family History Mother Hypertension Diabetes Father Hypertension Diabetes Son No problems noted. Social History Social History Alcohol intake: never Patient Tobacco Use Status: Never used Tobacco Advance Directives: No Advance Directives Information Provided: No Do you have a plan to hurt others: No Plan Physical Exam 2 Vital Signs: Vital Signs: Last Vital Signs Temp 98.8 F 02/02/24 02:40 Pulse 66 02/02/24 02:40 Resp 18 02/02/24 02:40 BP 120/71 02/02/24 02:40 Pulse Ox 96 02/02/24 02:40 O2 Del Method Room Air 02/02/24 02:40 BMI result Body Mass Index 33.8 Vital signs have been reviewed and appear to be correct. Blood pressure elevated. Heart rate normal. Respiratory rate normal. Temperature normal. Oxygen saturation normal. Appearance: Alert. Oriented X3. No acute distress. Head: Normal external exam. Normocephalic. Atraumatic. No Pacheco signs noted. No raccoon eyes noted Eyes: PERRLA. EOMI. Conjunctiva and sclera normal. Eyelids normal. ENT: TM's Normal. Pharynx normal. Uvula midline. Moist mucous membranes. No trismus noted. No drooling noted. No muffled voice noted. Neck: Normal inspection. Neck supple. FROM. No adenopathy. Thyroid Normal. No meningeal signs. No neck mass noted. CVS: Normal heart rate and rhythm. Heart sound normal. No murmurs noted. Pulses normal throughout. Respiratory: No respiratory distress. Painless inspiration. Breath sounds normal. No wheezes/rales/rhonchi noted. Chest nontender. No accessory muscle usage noted or decreased air movement noted. Abdomen: Soft, mild epigastric abdominal tenderness, no rebound tenderness, no guarding. Bowel sounds normal in all 4 quadrants. No distention noted. No organomegaly noted. No visible injury noted. Back: No CVA tenderness. Full range of motion noted. Skin: Skin warm and dry. Normal skin color. Normal skin turgor. No rashes/lesions/lacerations noted. Extremities: No lower extremity edema. Extremities exhibit normal range of motion. Extremities nontender. Neuro: Oriented X 3. Cranial nerve exam: II-XII are grossly intact No motor deficit. No sensory deficit. Reflexes normal. Course Reevaluation(s) Reevaluation #1: Persistent nausea and vomiting secondary to recent start on Wegovy to lose weight, patient feels better with Zofran Ativan, unremarkable labs, instructed to discuss with her PCP to discontinue Wegovy. Chronic leukocytosis. Time: 05:00 Medications Administered Discontinued Medications Generic Name Dose Route Start Last Admin Trade Name Freq PRN Reason Stop Dose Admin Famotidine 20 mg 02/02/24 02:05 02/02/24 02:24 Famotidine/Pf 20 Mg/2 Ml Vial IVPUSH 02/02/24 02:06 20 mg ONCE ONE Administration Sodium Chloride 1,000 mls @ 999 mls/hr 02/02/24 03:08 02/02/24 03:10 Ns IV 02/02/24 04:08 999 mls/hr .Q1H1M ONE Administration Metoclopramide HCl 10 mg 02/02/24 03:06 02/02/24 03:10 Metoclopramide Hcl 10 Mg/2 Ml Vial IVPUSH 02/02/24 03:07 10 mg ONCE ONE Administration Ondansetron HCl 4 mg 02/02/24 02:05 02/02/24 02:24 Ondansetron Hcl 4 Mg/2 Ml Vial IVPUSH 02/02/24 02:06 4 mg ONCE ONE Administration Ondansetron HCl 4 mg 02/02/24 03:52 02/02/24 03:56 Ondansetron Hcl 4 Mg/2 Ml Vial IVPUSH 02/02/24 03:53 4 mg ONCE ONE Administration Medical Decision Making Differential Diagnosis Differential Diagnoses: The differential diagnosis associated with the presentation includes (Intra-abdominal pathology, dehydration, electrolyte derangement, UTI, , nausea induced by medication.) Admission/Observation Consideration of admission/observation: Escalation of care including admission/observation considered Lab Data MDM Lab Attestation statement: I reviewed the patient's lab results. 02/02/24 02:42 02/02/24 02:42 Labs: Lab Results 02/02/24 Range/Units 02:42 WBC 13.2 H (4.8-10.8) X10*3/uL RBC 4.78 (4.20-5.50) X10*6/uL Hgb 11.2 L (12.0-16.0) g/dl Hct 34.9 L (37.0-47.0) % MCV 73.0 L (80.0-98.0) fL MCH 23.4 L (27.0-33.0) pg MCHC 32.1 (31.0-35.0) g/dl RDW 16.0 (11.0-16.0) % Plt Count 325 (160-400) X10*3/uL MPV 10.0 (9.4-12.3) fL Immature Gran % (Auto) 0.4 (0.0-0.4) % Neut % (Auto) 58.3 (45-73) % Lymph % (Auto) 32.7 (20-40) % Lynn % (Auto) 7.1 (2-11) % Eos % (Auto) 1.1 (0-4) % Baso % (Auto) 0.4 (0-2) % Lymph # (Auto) 4.3 (1.2-4.9) X10*3/uL Lynn # (Auto) 0.9 (0.1-1.2) X10*3/uL Eos # (Auto) 0.1 (0.0-0.4) X10*3/uL Baso # (Auto) 0.1 (0.0-0.2) X10*3/uL Abs Immat Gran (auto) 0.05 H (0.00-0.03) X10*3/uL Absolute Neuts (auto) 7.7 (2.0-8.3) x10*3/uL Absolute Nucleated RBC 0.000 (0.0-0.012) X10*3/uL Nucleated RBC % (auto) 0.0 (0.0-0.2) /100WBC Sodium 142 (135-145) mmol/L Potassium 3.6 (3.3-5.1) mmol/L Chloride 110 H (96-108) mmol/L Carbon Dioxide 22 (22-29) mmol/L Anion Gap 14 (12-20) BUN 10 (9-16) mg/dL Creatinine 0.76 (0.5-1.4) mg/dL Estim Creat Clear Calc 114.9 Estimated GFR > 60 Random Glucose 102 (60-115) mg/dL Calcium 9.7 (8.4-10.2) mg/dL Total Bilirubin 0.3 (0.0-1.0) mg/dL AST 12 (5-31) U/L ALT 10 (0-31) U/L Alkaline Phosphatase 55 (39-117) U/L Total Protein 6.8 (6.5-8.0) g/dL Albumin 4.0 (3.5-5.0) g/dL Lipase 34 (8-78) U/L Beta HCG, Quant < 2 mIU/mL Discharge Plan Discharge Clinical Impression: Drug-induced nausea and vomiting Patient Disposition: Home, Self-Care Instructions: Acute Nausea and Vomiting (ED) Prescriptions: New ondansetron 4 mg tablet,disintegrating 4 mg PO Q8H PRN (Reason: nausea and vomiting) Qty: 7 0RF No Action cephalexin 500 mg capsule 500 mg PO Q6H 7 Days Qty: 28 0RF ibuprofen 400 mg tablet 400 mg PO TID PRN (Reason: fever or pain) Qty: 30 0RF oxycodone 5 mg tablet 5 mg PO Q6H PRN (Reason: pain) Qty: 10 0RF Rx Instructions: Patient may request partial refill; Partial Fill upon patient request. acetaminophen [Tylenol Extra Strength] 500 mg tablet 1,000 mg PO Q6H PRN (Reason: fever or pain) Qty: 20 0RF nitrofurantoin monohyd/m-cryst [Macrobid] 100 mg capsule 100 mg PO Q12H 7 Days Qty: 14 0RF Rx Instructions: must administer with a meal/food albuterol sulfate 90 mcg/actuation HFA aerosol inhaler 1 inh inhalation QID PRN (Reason: shortness of breath or wheezing) Qty: 8.5 0RF albuterol sulfate 2.5 mg /3 mL (0.083 %) solution for nebulization inhalation Q6H PRN (Reason: wheezing) budesonide-formoterol [Symbicort] 80-4.5 mcg/actuation HFA aerosol inhaler 2 puff inhalation BID Print Language: Azeri
[2024-02-02] MEDS: Famotidine/PF 20 MG/2 ML VIAL IVPUSH (02:24)
[2024-02-02] MEDS: ondansetron HCL 4 MG/2 ML VIAL IVPUSH ×2 (02:24→03:56)
[2024-02-02 02:40] VITALS: BP 120/71; PULSE 66; RESP 18; TEMP 37.1; O2SAT 96
--- NOTE | 2024-02-02 02:47 | MHC.EDTECH ---
Labs drawn and sent to lab,vitals taken,patient is resting quietly call irving in reach
[2024-02-02 02:49] LABS: MANUAL DIFF FLAG NO
[2024-02-02 02:51] LABS: Basophils Absolute Auto 0.1 X10*3/uL (0.0-0.2); Basophils Percent Auto 0.4 % (0-2); Eosinophils Absolute Auto 0.1 X10*3/uL (0.0-0.4); Eosinophils Percent Auto 1.1 % (0-4); Hematocrit 34.9 % (37.0-47.0); Hemoglobin 11.2 g/dl (12.0-16.0); Imm Gran Abs Auto 0.05 X10*3/uL (0.00-0.03); Imm Gran Pct Auto 0.4 % (0.0-0.4); Lymphocytes Absolute Auto 4.3 X10*3/uL (1.2-4.9); Lymphocytes Percent Auto 32.7 % (20-40); Mean Corpuscular HGB Conc 32.1 g/dl (31.0-35.0); Mean Corpuscular Hemoglobin 23.4 pg (27.0-33.0); Monocytes Absolute Auto 0.9 X10*3/uL (0.1-1.2); Monocytes Percent Auto 7.1 % (2-11); Neutrophils Absolute Auto 7.7 x10*3/uL (2.0-8.3); Neutrophils Percent Auto 58.3 % (45-73); Platelet Count 325 X10*3/uL (160-400); Red Blood Count 4.78 X10*6/uL (4.20-5.50); White Blood Count 13.2 X10*3/uL (4.8-10.8)
[2024-02-02] MEDS: Metoclopramide HCl 10 MG/2 ML VIAL IVPUSH (03:10)
[2024-02-02] MEDS: 0.9 % Sodium Chloride 1,000 ML 999 ML IV (03:10)
[2024-02-02 03:16] LABS: Alanine Aminotransferase 10 U/L (0-31); Alkaline Phosphatase 55 U/L (39-117); Anion Gap 14 (12-20); Aspartate Amino Transferase 12 U/L (5-31); Bilirubin Total 0.3 mg/dL (0.0-1.0); Blood Urea Nitrogen 10 mg/dL (9-16); Calcium 9.7 mg/dL (8.4-10.2); Carbon Dioxide 22 mmol/L (22-29); Chloride 110 mmol/L (96-108); Creatinine Clr Calc Pharmacy 114.9; Estimated Glomerular Filt Rate > 60; Glucose Random 102 mg/dL (60-115); Lipase 34 U/L (8-78); Potassium 3.6 mmol/L (3.3-5.1); Sodium 142 mmol/L (135-145); Total Protein 6.8 g/dL (6.5-8.0)
[2024-02-02 03:18] LABS: HCG Quantitative < 2 mIU/mL
--- NOTE | 2024-02-02 04:28 | MHC.EDTECH ---
Rounds completed,patient is resting quietly call irving in reach
[2024-02-02] MEDS: LORazepam 2 MG/ML VIAL 1 MG IVPUSH (04:35)
[2024-02-02 04:46] LABS: Appearance Urine Cloudy; Color Urine Yellow; Glucose Urine UA Negative (Negative); Leukocyte Esterase Urine Moderate (2+) (Negative); Nitrite Urine Negative (Negative); PH 5.5 (5.0-9.0); UMIC TRIGGER UACC YES; Urine Blood Negative (Negative); Urine Ketones Negative (Negative); Urine Protein Negative (Neg-Trace)
[2024-02-02 05:01] LABS: Bacteria Urine 2+ (None Seen); RBC Urine 0-2 /HPF (0-2); UACC Culture Trigger YES; WBC Urine 21-50 /HPF (0-5)
[2024-02-02 06:27] VITALS: BP 124/76; PULSE 79; RESP 18; TEMP 36.9; O2SAT 99
[2024-02-02 07:15] VITALS: BP 117/76; PULSE 105; RESP 14; TEMP 36.7; O2SAT 94
--- NOTE | 2024-02-02 07:41 | PC.NURSE ---
Pt presented for nausea after receiving increased wygovy dose, unable to keep anything down, n/v. Pt received 1 L NS, zofran 4mgX2 and reglan. Pt was feeling anxious and received 1mg IV ativan. Per pt this treatment helpd and she was able to get some sleep. Per pt she is feeling much better. Pt ride was waiting for her. Pt verbalized understanding of discharge. IV removed and pt brought out to family member in wheelchair for transport and care.
== END 2024-02-02 07:15 | disposition home or self-care (01) ==
PROVIDERS: Emergency Provider Emergency Medicine; PCP Internal Medicine
DX: R11.2 Nausea with vomiting, unspecified (principal); T50.995A Adverse effect of other drugs, medicaments and biological substances, initial encounter; Y92.89 Other specified places as the place of occurrence of the external cause; R19.7 Diarrhea, unspecified; R10.10 Upper abdominal pain, unspecified; Z79.85 Long-term (current) use of injectable non-insulin antidiabetic drugs; Z79.899 Other long term (current) drug therapy
CPT/HCPCS: 36415; 80053; 81001; 83690; 84702; 85025; 87086; 96361; 96374; 96375; 96376; 99284; J2060; J2405; J2765